=== PATIENT | female | born 1945 | race Caucasian/White ===

== ENCOUNTER 2025-07-03 18:08 | Inpatient (IN) | payer MEDICARE, SELFPAY ==
[2025-07-03] VITALS (47 sets, daily range): BP systolic 102–177; BP diastolic 65–135; PULSE 50–121; RESP 14–35; TEMP 36.8–36.9; O2SAT 30–95
--- NOTE | 2025-07-03 18:00 | RT.EKG_ITS ---
APPROVED REPORT Exam: Resting ECG Reason for Exam: low O2 sats Patient Location: E HR:110 bpm ECG Measurements Heart Rate 110 AXIS NV 173 P 61 QRSd 86 QRS 74 QT 323 T 29 QTc 436 Conclusion Sinus tachycardia...rate> 99 Probable left atrial enlargement...P >50mS, <-0.10mV V1
--- NOTE | 2025-07-03 18:30 | DI.RAD_ITS ---
Exam(s) XR PORTABLE CHEST AP EXAM: XR PORTABLE CHEST AP CLINICAL HISTORY: cough TECHNIQUE: 2D digital imaging was performed of the chest. One image was obtained. An AP view was obtained. COMPARISON: No exams were available for comparison FINDINGS: MEDIASTINUM: Normal. HEART: Normal. PULMONARY VASCULATURE: Normal. LUNGS: Multifocal opacities are present particularly in the right upper lobe laterally. PLEURAL SPACE: No pleural effusion or pneumothorax. BONE:Within normal limits for the patient's age. OTHER FINDINGS:Normal. IMPRESSION: 1. Multifocal opacities, particularly in the right upper lobe suspicious for pneumonia. 2. The preliminary [facility] report was reviewed. DATA REPOSITORY: RADIATION DOSE DELIVERED:
--- NOTE | 2025-07-03 18:32 | W.ED.GENAD ---
Discharge Plan Disposition Patient Disposition: Admit to [facility] Condition: Stable Discharge Details Clinical Impression: Acute hypoxic respiratory failure, Multifocal pneumonia, COPD exacerbation ED Provider: Hema Henson Home Meds and New Rx's Prescriptions: No Action multivitamin Tablet 1 tab PO DAILY primidone 50 mg tablet 50 mg PO BID atorvastatin [Lipitor] 80 mg tablet 80 mg PO DAILY amitriptyline 10 mg tablet 10 mg PO DAILY ropinirole 0.5 mg tablet 0.5 mg PO DAILY clonazepam [Klonopin] 2 mg tablet 2 mg PO QHS Rx Instructions: administer 30 minutes before bedtime montelukast 10 mg tablet 10 mg PO DAILY loratadine [Allergy Relief (loratadine)] 10 mg tablet 10 mg PO DAILY ramipril 10 mg capsule 10 mg PO DAILY tizanidine 4 mg capsule 4 mg PO BID PRN pantoprazole [address] for susp in packet 40 mg PO DAILY levothyroxine 75 mcg capsule 75 mcg PO DAILY HPI General Mode of arrival: ambulatory. Date/Time Provider Initiated Documentation: 07/03/25 18:09. Limitations to Documentation: no limitations. Information obtained by: patient. History of Present Illness 79 year old F presents to the emergency department with the chief complaint of shortness of breath, cough, described as moderate, Patient started experiencing this day(s) (4) and it has been constant. No relieving factors improve symptom(s), No exacerbating factors reported . Patient notes cough, fever/chills and shortness of breath; denies chest pain. Patient did receive the following treatments prior to arrival, none Related Data Home Medications ?Medication ?Instructions ?Recorded ?Confirmed amitriptyline 10 mg tablet 10 mg PO DAILY 07/03/25 07/03/25 atorvastatin 80 mg tablet (Lipitor) 80 mg PO DAILY 07/03/25 07/03/25 clonazepam 2 mg tablet (Klonopin) 2 mg PO QHS 07/03/25 07/03/25 levothyroxine 75 mcg capsule 75 mcg PO DAILY 07/03/25 07/03/25 loratadine 10 mg tablet (Allergy 10 mg PO DAILY 07/03/25 07/03/25 Relief (loratadine)) montelukast 10 mg tablet 10 mg PO DAILY 07/03/25 07/03/25 multivitamin 1 tab PO DAILY 07/03/25 07/03/25 pantoprazole 40 mg granules 40 mg PO DAILY 07/03/25 07/03/25 delayed-release for susp in packet primidone 50 mg tablet 50 mg PO BID 07/03/25 07/03/25 ramipril 10 mg capsule 10 mg PO DAILY 07/03/25 07/03/25 ropinirole 0.5 mg tablet 0.5 mg PO DAILY 07/03/25 07/03/25 tizanidine 4 mg capsule 4 mg PO BID PRN 07/03/25 07/03/25 Allergies Allergy/AdvReac Type Severity Reaction Status Date / Time codeine Allergy Intermediate Diarrhea Verified 07/03/25 17:00 General Stated Complaint: SOB SIRISHA: 2 Review of Systems All systems reviewed & are unremarkable except as noted in HPI and below Constitutional Constitutional: Reports chills, Reports fever(s) and Denies weakness Cardiovascular Cardiovascular: Denies chest pain and Reports dyspnea Respiratory Respiratory: Reports cough and Reports dyspnea Gastrointestinal Gastrointestinal: Denies abdominal pain, Denies nausea and Denies vomiting Neurologic Neurologic: Denies weakness Psychiatric Psychiatric: Denies depression Exam Const General: no acute distress Orientation: alert HENKY Head: normal to inspection Ears: external ears normal General nose exam: external nose normal Mouth: moist mucous membranes Eyes General: appearance normal, both eyes and all related structures Neck Neck: normal visual inspection Resp Auscultation: rhonchi and wheezes Cardio Rate: regular rate Skin General skin exam: no rashes or lesions noted Neuro General: patient alert and patient oriented x3 Extrem General: normal to inspection Psych Mental Status: mental status grossly normal Course Vital Signs Vital signs: Vital Signs Temperature 36.9 C 07/03/25 18:11 Pulse 115 H 07/03/25 18:11 Respiratory Rate 25 H 07/03/25 18:11 Blood Pressure 151/76 H 07/03/25 18:11 Pulse Oximetry 74 L 07/03/25 18:11 Temperature 36.9 C 07/03/25 18:21 Temperature Source Oral 07/03/25 18:21 Pulse 109 H 07/03/25 18:21 Respiratory Rate 24 07/03/25 18:21 Blood Pressure 151/76 H 07/03/25 18:21 Pulse Oximetry 74 L 07/03/25 18:21 Oxygen Delivery Method Room Air 07/03/25 18:21 Oxygen Flow Rate 0 07/03/25 18:11 Comment 2L initiated 07/03/25 18:21 Lab/Test Results Lab/Test Results: 07/03/25 18:21 Blood Blood Culture - Pending 07/03/25 18:21 Blood Blood Culture - Pending Medical Decision Making 79-year-old female with a history of COPD not normally on oxygen who is visiting from [place] comes in for 4 days of cough, shortness of breath and subjective fevers. Denies any chest pain or chest pressure. She has been using her normal inhalers for COPD and despite this has had worsening shortness of breath so initially went to [facility] who noted she was hypoxic and sent her here. She is 74% on room air on my exam she is 90% on 2 L nasal cannula. She is able to speak in full sentences, she has apical wheezing bilaterally and rhonchi at the bases bilaterally. No JVD or leg swelling or calf tenderness. Given her history I suspect COPD exacerbation and possibly a pneumonia. Will check CBC, CMP, procalcitonin, troponins and chest x-ray and treat her symptoms with methylprednisolone and DuoNeb. Patient's potassium 2.9 so oral and IV repletion ordered. Troponin is over 500 she continues to deny any chest pain and I suspect this is secondary from being hypoxic likely for a few days. X-ray shows interstitial edema, I will obtain a CTA. CTA shows no PE, does have bilateral pulmonary opacities and also small right pleural effusion. Given her proBNP is elevated I am willing of her dose of Lasix and ceftriaxone and azithromycin been ordered. She is also asking for a dose of Imitrex which she says she takes for migraines and states she feels 1 is starting so we will order this. Will discuss with hospitalist about admission. Differential Diagnosis Differential Diagnosis: COPD, pneumonia Lab Data Lab results reviewed: Yes I reviewed the patient's lab results. ECG Data Attestation: I personally reviewed and interpreted this ECG (s) as follows: Prior ECG tracings: not available for review Interpretation: sinus tachycardia, rate of 11 no stemi PFSH All Active Problems (Updated 07/03/25 @ 20:19 by Hema Henson MD) COPD exacerbation (Acute) Multifocal pneumonia (Acute) Acute hypoxic respiratory failure (Acute) Social History Smoking/Tobacco Use Status: Former Tobacco Use Smoking risk assessment performed?: Yes Alcohol Intake: former Substance use type: does not use Housing: house Do you feel safe at home: Yes Do you feel safe in your relationship?: Yes
[2025-07-03 18:35] LABS: BE (Venous) -1 mmol/L (-2-3); HCO3 (Venous) 25 mmol/L (23-28); O2 Sat (Venous) 81 %; TCO2 (Venous) 22 mmol/L (24-29); pCO2 (Venous) 45 mmHg (41-51); pO2 (Venous) 46 mmHg
[2025-07-03] MEDS: methylPREDNISolone SUCC 125 MG VIAL IVP (18:35)
[2025-07-03 18:36] LABS: Abs Immature Grans 0.13 10^3/uL (0.0-0.06); HCT 40.1 % (36.0-46.0); HGB 12.8 g/dL (11.2-15.7); Immature Grans % 1.0 %; MCH 28.3 pg (27.0-33.0); MCHC 31.9 % (32.0-36.0); MCV 89 fL (80-95); MPV 10.2 fL (8.0-11.0); Platelet Count 251 10^3/uL (130-400); RBC 4.53 10^6/uL (3.93-5.22); RDW 14.1 % (11.7-14.6); RDW-SD 45.8 fL; WBC 12.78 10^3/uL (4.4-10.8)
[2025-07-03] MEDS: Albuterol/Ipratropium 3 ML UPD VIAL UPD ×2 (18:36→19:14)
--- NOTE | 2025-07-03 19:00 | DI.CT_ITS ---
Exam(s) CT CHEST PE CTA EXAM: CT CHEST PE CTA CLINICAL HISTORY: hypoxia, dyspnea. TECHNIQUE: Imaging Protocol: Axial CT angiography was performed with multi- slice acquisition and multi-planar and/or 3D reconstructions. Lung Computer Aided Detection (CAD) was utilized. CONTRAST MATERIAL: Intravenous: Omnipaque 350 contrast volume:75 mL COMPARISON: CR,XR XR PORTABLE CHEST AP from 07/03/2025 FINDINGS: Tracheobronchial tree: There is mild bronchial wall thickening seen in the lower lobes bilaterally. Mucous plugging is seen in the right lower lobe. No bronchiectasis. Pulmonary parenchyma: Emphysematous changes are present in the lungs. There are areas of consolidation in the right upper lobe left upper lobe and right middle lobe. There is atelectasis in the right lower lobe. Pulmonary Arteries: No evidence of filling defect to suggest pulmonary emboli. Mediastinum and Татьяна: There are mildly enlarged lymph nodes seen in the mediastinum which may be reactive. The esophagus is unremarkable. Visualized thyroid gland: Unremarkable. Pleura: There is a tiny right pleural effusion. No significant left pleural effusion. There is no pneumothorax. Heart: The heart is not dilated. Mild coronary artery calcification is present. No pericardial effusion. Aorta: Thoracic aorta non-dilated. No evidence of dissection. Atherosclerotic calcification is present. Upper abdomen: Unremarkable. Soft tissues: Unremarkable. Bones: Within normal limits for the patient's age. IMPRESSION: 1. No evidence of pulmonary embolism, thoracic aortic dissection or aneurysm. 2. Multifocal pulmonary infiltrates are present suspicious for pneumonia. 3. Nonspecific bronchial wall thickening and mucus plugging in the right lower lobe with resultant right basilar atelectasis. 4. Tiny right pleural effusion. 5. Moderate centrilobular emphysema. 6. The preliminary [facility] report was reviewed. RADIATION DOSE DELIVERED: 67.24mGy.cm Total DLP DATA REPOSITORY: All CT scans at this facility are submitted to the National Radiology Data Registry (NRDR) Dose Index Registry (DIR) with the [employer] (ACR). RADIATION OPTIMIZATION: All CT scans at this facility use at least one of these dose optimization techniques: automated exposure control; mA and/or kV adjustment per patient size (includes targeted exams where dose is matched to clinical indication); or iterative reconstruction.
[2025-07-03 19:03] LABS: ALT 42 U/L (14-59); AST 39 U/L (15-37); Albumin 2.7 g/dL (3.4-5.0); Alkaline Phosphatase 139 U/L (46-116); Anion Gap 10.7 mmol/L (3-11); BUN 20 mg/dL (7-18); Bilirubin, Total 0.4 mg/dL (0.2-1.0); CO2 26.3 mmol/L (21.0-32.0); Calcium 9.2 mg/dL (8.5-10.1); Chloride 101 mmol/L (98-107); Estimated GFR 51.75 (mL/min/1.73m2); Glucose 219 mg/dL (74-106); Magnesium 1.9 mg/dL (1.8-2.4); NT-proBNP 3718 pg/mL (<300); Sodium 138 mmol/L (136-145); Total Protein 8.1 g/dL (6.4-8.2)
[2025-07-03 19:05] LABS: Potassium 2.9 mmol/L (3.5-5.1); Procalcitonin 0.48 ng/mL; Troponin I 554 ng/L (<or=51)
[2025-07-03] MEDS: Potassium Chloride 20 MEQ TABCR 40 MEQ PO (19:14)
[2025-07-03 19:15] LABS: COVID-19 PCR Negative (Negative); RSV PCR Negative (Negative)
--- NOTE | 2025-07-03 19:25 | DI.[facility]_ITS ---
PROCEDURE INFORMATION: Exam: XR Chest Exam date and time: 07/03/2025 7:14 PM Age: 79 years old Clinical indication: Cough TECHNIQUE: Imaging protocol: Radiologic exam of the chest. Views: 1 view. COMPARISON: No relevant prior studies available. FINDINGS: Lungs: There are diffuse interstitial radiopacities throughout both lungs. Patchy consolidative radiopacities are present within the right mid lung. Pleural spaces: No pleural effusion or pneumothorax. Heart/Mediastinum: The heart is normal size. Bones/joints: Unremarkable. IMPRESSION: 1. Diffuse interstitial radiopacities suspicious for pulmonary edema. Differential considerations include viral pneumonitis. 2. Consolidative right pulmonary radiopacities suspicious for aspiration/infection. Short interval follow-up is recommended to exclude underlying pulmonary pathology. Dictated and Authenticated by: Lula Isbell MD. Orderin Sixto Garrido MD
[2025-07-03] MEDS: POTASSIUM CHLORIDE 10 MEQ/100 ML BAG 100 MEQ IV_INF (19:26)
[2025-07-03] MEDS: Omnipaque 350 MG/ML 100 ML BTL IJ (19:46)
[2025-07-03] MEDS: Normal Saline - Diluent 50 ML VIAL IJ (19:46)
[2025-07-03 20:05] LABS: Troponin I 495 ng/L (<or=51)
--- NOTE | 2025-07-03 20:09 | DI.[facility]_ITS ---
PROCEDURE INFORMATION: Exam: CTA Chest With Contrast Exam date and time: 07/03/2025 7:54 PM Age: 79 years old Clinical indication: Dyspnea and other: Hypoxia; Hypoxia, dyspnea TECHNIQUE: Imaging protocol: Computed tomographic angiography of the chest with contrast. Exam focused on the arteries. 3D rendering (Not supervised by radiologist): MIP and/or 3D reconstructed images were created by the technologist. COMPARISON: XR PORTABLE CHEST AP 07/03/2025 7:14 PM FINDINGS: Pulmonary arteries: No acute pulmonary embolus. Aorta: Atheromatous calcifications are present within the visualized thoracic aorta. Lungs: There is moderate centrilobular emphysema with an apical predominance. Consolidative radiopacities are present within the posterior right upper lobe and to a lesser extent the left upper lobe. Dependent atelectasis is present at the lung bases. Pleural spaces: There is a small low-density right pleural effusion. Heart: Heart is normal size. No pericardial effusion. Lymph nodes: There is a 1.1 cm in diameter pretracheal lymph node. Bones/joints: Bones have a normal appearance. No acute fracture or suspicious bone lesion. Soft tissues: Unremarkable. IMPRESSION: 1. No pulmonary embolus. 2. Bilateral upper lobe pulmonary radiopacities, greater on the right than on the left suspicious for multifocal aspiration/pneumonia. Short interval follow-up is recommended to exclude underlying pulmonary pathology. 3. Small right pleural effusion. Dictated and Authenticated by: Lula Isbell MD. Orderin Sixto Garrido MD
--- NOTE | 2025-07-03 20:35 | W.PM.HP.N ---
Date of service: 07/03/25 Time of Service: 20:35 Assessment and Plan Assessment and plan (1) Acute hypoxic respiratory failure: Start date: 07/03/25 Status: Acute Assessment and plan: This is a 79-year-old lady vacationing here with her who has mild dementia and a small cabin. She does have COPD and noticed worsening respiratory symptoms with fever and chills recently and presents to the ED for evaluation. She is hypoxic with no hypoxia at home on Breo for COPD. She was found to have multifocal pneumonia possible vascular congestion with right pleural effusion. Her WBC was mildly elevated and she did not appear septic. She did have a bump in her troponins with no history of cardiovascular disease and these are trending downward and appear to be secondary to the stress of days of hypoxemia. She is asymptomatic with no chest pain. She will be continued on IV Rocephin and a Zithromax with oxygen supplementation and treatment of COPD exacerbation. Cardiac monitoring with echocardiogram morning to evaluate heart function with question of CHF and on IV Lasix now. Troponins will be trended with patient asymptomatic with no ischemic changes on EKG. She is a full code. (2) Multifocal pneumonia: Start date: 07/03/25 Status: Acute Assessment and plan: Continue IV Rocephin and Zithromax with oxygen supplementation. Wean oxygen as tolerated. (3) Pleural effusion associated with pulmonary infection: Start date: 07/03/25 Status: Acute Assessment and plan: Patient may have inflammatory changes with pleural effusion and vascular congestion but question of CHF with elevated BNP and no comparison. She has had no peripheral edema or weight gain. Lasix 40 mg IV twice daily with 20 mg of Lasix given in the ED. Avoid IV fluids. Follow-up echocardiogram especially with elevated troponins. Cardiac monitoring. (4) COPD exacerbation: Start date: 07/03/25 Status: Acute Assessment and plan: IV Solu-Medrol with aggressive nebulizer treatments. Treat pneumonia and possible CHF as well. (5) Hypokalemia: Start date: 07/03/25 Status: Acute Assessment and plan: IV supplement and oral supplement in the ED with follow-up in the morning. She is not on chronic Lasix but now is on Lasix for possible CHF. (6) Acute hyperglycemia: Start date: 07/03/25 Status: Acute Assessment and plan: Patient given history of diabetes but has hyperglycemia. Glucometer measurements before meals and at bedtime with sensitive sliding scale insulin coverage while hospitalized. Check hemoglobin A1c. (7) Elevated troponin level not due to acute coronary syndrome: Start date: 07/03/25 Status: Acute Assessment and plan: Patient does have elevated troponins with no history of CAD. Trend troponins since trending downward and echocardiogram in the morning. Cardiac monitoring. There is no evidence of ischemia and this most likely is secondary to acute respiratory failure with hypoxemia. She does have risk factors for CAD with hypertension and hyperlipidemia and her obesity with diabetes. If echocardiogram has wall motion abnormalities, with elevated troponins [facility] cardi[place] should be consulted as to more aggressive treatment for ischemic heart disease acutely with her stress of hypoxic respiratory failure. She is a full code. (8) Hypothyroidism (acquired): Status: Chronic Assessment and plan: Continue outpatient supplementation. Check TSH. (9) HTN (hypertension): Status: Chronic Assessment and plan: Continue outpatient medical therapy. (10) Hyperlipidemia: Status: Chronic Assessment and plan: Continue high-dose statin therapy. (11) Migraine headache: Status: Chronic Assessment and plan: Continue outpatient medical therapy. Patient also has restless leg syndrome and essential tremor for which she is on medical therapy. History of Present Illness History of Present Illness Chief Complaint: Shortness of breath with cough and wheezing for 4 days. Narrative: This is a 79-year-old female patient from [place] vacationing here with her who has mild dementia and is a service dog. They are camping in a small cabin owned by their friends who live on the same property in [place], [place]. She has been having problems with difficulty breathing, cough and exacerbation her of her chronic COPD for the last 4 days. She also has been having chills with low-grade fever. She has had no reported chest pain. She denies any hemoptysis or production of sputum. She does have Breo which she uses daily but did not mention a rescue inhaler. She was seen in the ED and found to have multifocal pneumonia which appears possibly viral with some suggestion of fluid overload with interstitial markings increased and a right pleural effusion but no history of CAD or CHF. She does have a history of hypertension on MAKENNA inhibitor. She is chronically on clonazepam nightly and PDMP did not show any prescriptions but does not cover her state of [place]. She confirmed that she takes this nightly. She was given IV Lasix in the ED because of her pleural effusion and possible fluid overload and initiated on IV ceftriaxone and a Zithromax for multifocal pneumonia with new hypoxic respiratory failure. She also was treated for COPD exacerbation with Solu-Medrol and nebulizers. She had no significant fever in the ED. Cultures were obtained. She will be admitted for continued IV antibiotic therapy and supportive care for possible CHF and monitor drain of oxygen needs the patient chronically not on oxygen at home. She does appear to be discharged home without oxygen. She is a full code. Review of Systems Narrative: 13 point review of systems otherwise unrevealing or stable. [facility] All Active Problems (Updated 07/03/25 @ 20:41 by Blas Hurtado) Pleural effusion associated with pulmonary infection (Acute) Elevated troponin level not due to acute coronary syndrome (Acute) Hypokalemia (Acute) Acute hyperglycemia (Acute) Migraine headache (Chronic) Hyperlipidemia (Chronic) HTN (hypertension) (Chronic) Hypothyroidism (acquired) (Chronic) COPD exacerbation (Acute) Multifocal pneumonia (Acute) Acute hypoxic respiratory failure (Acute) Social History Smoking/Tobacco Use Status: Former Tobacco Use Smoking risk assessment performed?: Yes Alcohol Intake: former Substance use type: does not use Housing: house Do you feel safe at home: Yes Do you feel safe in your relationship?: Yes Meds Allergies and Home Medications Allergies Allergy/AdvReac Type Severity Reaction Status Date / Time codeine Allergy Intermediate Diarrhea Verified 07/03/25 17:00 Home Medications ?Medication ?Instructions ?Recorded ?Confirmed ?Type amitriptyline 10 mg tablet 10 mg PO DAILY 07/03/25 07/03/25 History atorvastatin 80 mg tablet (Lipitor) 80 mg PO DAILY 07/03/25 07/03/25 History clonazepam 2 mg tablet (Klonopin) 2 mg PO QHS 07/03/25 07/03/25 History levothyroxine 75 mcg capsule 75 mcg PO DAILY 07/03/25 07/03/25 History loratadine 10 mg tablet (Allergy 10 mg PO DAILY 07/03/25 07/03/25 History Relief (loratadine)) montelukast 10 mg tablet 10 mg PO DAILY 07/03/25 07/03/25 History multivitamin 1 tab PO DAILY 07/03/25 07/03/25 History pantoprazole 40 mg granules 40 mg PO DAILY 07/03/25 07/03/25 History delayed-release for susp in packet primidone 50 mg tablet 50 mg PO BID 07/03/25 07/03/25 History ramipril 10 mg capsule 10 mg PO DAILY 07/03/25 07/03/25 History ropinirole 0.5 mg tablet 0.5 mg PO DAILY 07/03/25 07/03/25 History sumatriptan succinate PO PRN migraine headache 07/03/25 History tizanidine 4 mg capsule 4 mg PO BID PRN 07/03/25 07/03/25 History Exam Narrative Exam Narrative: General: Patient appears appropriate for age, moderately obese, alert and oriented x 3 and in no acute distress. Patient does have a hoarse voice and states that she has chronic vocal cords spasm. HEENT: Normocephalic, eyes with pupils equal and react to light symmetrically, extraocular movement intact and sclera anicteric. Oropharynx with moist Koza and fair dentition. Neck: Supple without JVD. Back: Kyphotic without CVA tenderness. Lungs: Fair to poor aeration with bronchovesicular breath sounds diffusely, slightly increased expiratory phase with expiratory wheeze. Diffuse coarse crackles withdrawn nonfocal with no focalizing rales. No rhonchi. Breast: Exam deferred. Heart: Tachycardic rate with regular rhythm. No appreciable murmur or gallop. Abdomen: Obese contour, soft and nontender to palpation without palpable hepatosplenomegaly. Bowel sounds positive all quadrants. Genitalia/rectal: Exam deferred. Extremities: No clubbing, cyanosis or pitting edema. Fair capillary refill. Skin: Normal color, warm and dry. Neuro: Cranial nerves II through XII gross intact, no focalized motor deficits noted tremor seen on exam but she does have a history of essential tremor on primidone. Psych: Normal affect and mood. No abnormal thought processes. Remote and recent memory intact. Results Labs 07/03/25 18:22 07/03/25 19:20 Labs: Laboratory Results - last 24 hr 07/03/25 07/03/25 18:22 19:20 WBC 12.78 H RBC 4.53 Hgb 12.8 Hct 40.1 MCV 89 MCH 28.3 MCHC 31.9 L RDW 14.1 Plt Count 251 MPV 10.2 Immature Gran % 1.0 Neutrophils % 77.0 Lymphocytes % 9.8 Monocytes % 11.4 Eosinophils % 0.3 Basophils % 0.5 Nucleated RBC % 0.4 H Absolute Neutrophils 9.84 H Absolute Lymphocytes 1.25 Absolute Monocytes 1.46 H Absolute Eosinophils 0.04 Absolute Basophils 0.06 VBG pH 7.35 VBG pCO2 45 VBG pO2 46 VBG HCO3 25 VBG Total CO2 22 L VBG O2 Saturation 81 VBG Base Excess -1 Sodium 138 Potassium 2.9 L* Chloride 101 Carbon Dioxide 26.3 Anion Gap 10.7 BUN 20 H Creatinine 1.1 H Est GFR (CKD-EPI 2020) 51.75 Glucose 219 H Calcium 9.2 Magnesium 1.9 Total Bilirubin 0.4 AST 39 H ALT 42 Alkaline Phosphatase 139 H Troponin I 554 H* 495 H* NT-Pro-B Natriuret Pep 3718 H Total Protein 8.1 Albumin 2.7 L Procalcitonin 0.48 COVID-19 Source Nasopharynx SARS-CoV-2 (PCR) Negative Influenza Type A (PCR) Negative Influenza Type B (PCR) Negative RSV (PCR) Negative Last Vital Signs Temp 36.9 C 07/03/25 18:21 Pulse 114 H 07/03/25 20:10 Resp 19 07/03/25 20:10 BP 158/82 H 07/03/25 20:03 Pulse Ox 90 L 07/03/25 20:10 Time Spent Time spent with Patient: >75 minutes Time was spent: preparing to see the patient(eg.review tests), obtaining and/or reviewing separately otained hiistory, ordering medications,tests, procedures, indepentently interpreting results, counseling the patient and care coordination
[2025-07-03 20:40] LABS: Potassium 3.3 mmol/L (3.5-5.1)
[2025-07-03] MEDS: cefTRIAXone 2 GM/50 ML BAG IVPB (20:50)
[2025-07-03] MEDS: Furosemide 20 MG/2 ML VIAL IVP (20:51)
[2025-07-03] MEDS: Aspirin 325 MG TAB PO (20:51)
[2025-07-03] MEDS: Normal Saline Flush 10 ML SYR IVP (21:05)
[2025-07-03] MEDS: SUMAtriptan 50 MG TAB PO (21:25)
[2025-07-03] MEDS: AZITHROMYCIN 500 MG in Normal Saline 250 ML 250 MG IVPB (21:25)
[2025-07-03 21:27] LABS: TSH 1.85 uIU/mL (0.36-3.74)
[2025-07-03 21:58] LABS: Hemoglobin A1C 6.5 % (<5.7)
[2025-07-03 22:26] LABS: Troponin I 434 ng/L (<or=51)
--- NOTE | 2025-07-03 22:41 | W.PC.ACHO ---
Registration Status: REG ER Primary Language: Preferred Language: ED Information & Data Chief Complaint SOB 07/03/25 18:35 Triage Note patient sent from with 07/03/25 18:11 having difficulty breathing and spo2 in low 80s. Patient state she has been having productive cough for the past 4 days Most Recent Vital Signs Temperature 36.9 C 07/03/25 21:00 Temperature Source Oral 07/03/25 21:00 Pulse 109 H 07/03/25 22:09 Pulse 109 H 07/03/25 22:09 Respiratory Rate 25 H 07/03/25 22:09 Respiratory Effort Short of Breath, Labored 07/03/25 20:10 Respiratory Depth Deep 07/03/25 20:10 Respiratory Pattern Tachypnea 07/03/25 20:10 Blood Pressure 168/81 H 07/03/25 22:09 Blood Pressure Mean 111 07/03/25 22:09 Pulse Oximetry 88 L 07/03/25 22:09 Oxygen Delivery Method Nasal Cannula 07/03/25 21:47 Oxygen Flow Rate 3 07/03/25 21:47 Comment 2L initiated 07/03/25 18:21 Allergies codeine Allergy (Intermediate, Verified 07/03/25 17:00) Diarrhea Precautions Isolation PUI 07/03/25 18:20 Active Medications Generic Name Dose Route Start Last Admin Trade Name Mukund PRN Reason Stop Dose Admin Iohexol 100 ml 07/03/25 19:45 07/03/25 19:46 Omnipaque 350 Mg/Ml 100 Ml Btl IJ 08/02/25 23:59 75 ml DIRECTED CHANTEL Administration Sodium Chloride 0 ml 07/03/25 20:00 07/03/25 21:05 Normal Saline Flush 10 Ml Syr IVP 10 ml BID CHANTEL Administration Sodium Chloride 50 ml 07/03/25 19:45 07/03/25 19:46 Normal Saline - Diluent 50 Ml Vial IJ 50 ml DIRECTED CHANTEL Administration IV IV Catheter Type [Right Wrist] Saline Lock IV Catheter Type [Right Saline Lock Antecubital] IV Catheter Gauge [Right Wrist 20 ] IV Catheter Gauge [Right 18 Antecubital] Diagnostics 07/03/25 07/03/25 07/03/25 Range/Units 21:50 20:40 19:20 WBC (4.4-10.8) 10^3/uL RBC (3.93-5.22) 10^6/uL Hgb (11.2-15.7) g/dL Hct (36.0-46.0) % MCV (80-95) fL MCH (27.0-33.0) pg MCHC (32.0-36.0) % RDW (11.7-14.6) % Plt Count (130-400) 10^3/uL MPV (8.0-11.0) fL Immature Gran % % Neutrophils % % Lymphocytes % % Monocytes % % Eosinophils % % Basophils % % Nucleated RBC % (0.0-0.3) % Absolute Neutrophils (1.2-6.7) 10^3/uL Absolute Lymphocytes (1.2-3.4) 10^3/uL Absolute Monocytes (0.1-0.8) 10^3/uL Absolute Eosinophils (0.0-0.7) 10^3/uL Absolute Basophils (0.0-0.2) 10^3/uL VBG pH (7.31-7.41) VBG pCO2 (41-51) mmHg VBG pO2 mmHg VBG HCO3 (23-28) mmol/L VBG Total CO2 (24-29) mmol/L VBG O2 Saturation % VBG Base Excess (-2-3) mmol/L Sodium (136-145) mmol/L Potassium 3.3 L (3.5-5.1) mmol/L Chloride (98-107) mmol/L Carbon Dioxide (21.0-32.0) mmol/L Anion Gap (3-11) mmol/L BUN (7-18) mg/dL Creatinine (0.55-1.02) mg/dL Est GFR (CKD-EPI 2020) (mL/min/1.73m2) Glucose (74-106) mg/dL Hemoglobin A1c 6.5 H (<5.7) % Calcium (8.5-10.1) mg/dL Magnesium (1.8-2.4) mg/dL Total Bilirubin (0.2-1.0) mg/dL AST (15-37) U/L ALT (14-59) U/L Alkaline Phosphatase (46-116) U/L Troponin I Pending 495 H* (<or=51) ng/L NT-Pro-B Natriuret Pep (<300) pg/mL Total Protein (6.4-8.2) g/dL Albumin (3.4-5.0) g/dL Procalcitonin ng/mL TSH 1.85 (0.36-3.74) uIU/mL COVID-19 Source SARS-CoV-2 (PCR) (Negative) Influenza Type A (PCR) (Negative) Influenza Type B (PCR) (Negative) RSV (PCR) (Negative) 07/03/25 Range/Units 18:22 WBC 12.78 H (4.4-10.8) 10^3/uL RBC 4.53 (3.93-5.22) 10^6/uL Hgb 12.8 (11.2-15.7) g/dL Hct 40.1 (36.0-46.0) % MCV 89 (80-95) fL MCH 28.3 (27.0-33.0) pg MCHC 31.9 L (32.0-36.0) % RDW 14.1 (11.7-14.6) % Plt Count 251 (130-400) 10^3/uL MPV 10.2 (8.0-11.0) fL Immature Gran % 1.0 % Neutrophils % 77.0 % Lymphocytes % 9.8 % Monocytes % 11.4 % Eosinophils % 0.3 % Basophils % 0.5 % Nucleated RBC % 0.4 H (0.0-0.3) % Absolute Neutrophils 9.84 H (1.2-6.7) 10^3/uL Absolute Lymphocytes 1.25 (1.2-3.4) 10^3/uL Absolute Monocytes 1.46 H (0.1-0.8) 10^3/uL Absolute Eosinophils 0.04 (0.0-0.7) 10^3/uL Absolute Basophils 0.06 (0.0-0.2) 10^3/uL VBG pH 7.35 (7.31-7.41) VBG pCO2 45 (41-51) mmHg VBG pO2 46 mmHg VBG HCO3 25 (23-28) mmol/L VBG Total CO2 22 L (24-29) mmol/L VBG O2 Saturation 81 % VBG Base Excess -1 (-2-3) mmol/L Sodium 138 (136-145) mmol/L Potassium 2.9 L* (3.5-5.1) mmol/L Chloride 101 (98-107) mmol/L Carbon Dioxide 26.3 (21.0-32.0) mmol/L Anion Gap 10.7 (3-11) mmol/L BUN 20 H (7-18) mg/dL Creatinine 1.1 H (0.55-1.02) mg/dL Est GFR (CKD-EPI 2020) 51.75 (mL/min/1.73m2) Glucose 219 H (74-106) mg/dL Hemoglobin A1c (<5.7) % Calcium 9.2 (8.5-10.1) mg/dL Magnesium 1.9 (1.8-2.4) mg/dL Total Bilirubin 0.4 (0.2-1.0) mg/dL AST 39 H (15-37) U/L ALT 42 (14-59) U/L Alkaline Phosphatase 139 H (46-116) U/L Troponin I 554 H* (<or=51) ng/L NT-Pro-B Natriuret Pep 3718 H (<300) pg/mL Total Protein 8.1 (6.4-8.2) g/dL Albumin 2.7 L (3.4-5.0) g/dL Procalcitonin 0.48 ng/mL TSH (0.36-3.74) uIU/mL COVID-19 Source Nasopharynx SARS-CoV-2 (PCR) Negative (Negative) Influenza Type A (PCR) Negative (Negative) Influenza Type B (PCR) Negative (Negative) RSV (PCR) Negative (Negative) 07/03/25 18:43 Blood Culture - Pending Blood 07/03/25 18:11 Blood Culture - Pending Blood Intake and Output - 24 Hour Total 07/03/25 18:08 thru 07/03/25 22:06 Intake Total 350 Output Total 350 Balance 0 Weight 74.389 kg Intake: IV 150 Oral 200 Output: Urine 350 Other: # Voids 2 Falls Risk Assessment History of Falls No History 07/03/25 18:51 Contributing Factors No Factors 07/03/25 18:51 Ambulatory Aids Independent 07/03/25 18:51 Tubes/Lines None 07/03/25 18:51 Gait Evaluation No gait disturbance 07/03/25 18:51 Cognition No cognitive impairment 07/03/25 18:51 Fall Total Score 0 08/26/25 18:51 Level of Risk Standard/Low Risk 07/03/25 18:51 Problems Pleural effusion associated with pulmonary infection (Acute) Elevated troponin level not due to acute coronary syndrome (Acute) Hypokalemia (Acute) Acute hyperglycemia (Acute) Migraine headache (Chronic) Hyperlipidemia (Chronic) HTN (hypertension) (Chronic) Hypothyroidism (acquired) (Chronic) COPD exacerbation (Acute) Multifocal pneumonia (Acute) Acute hypoxic respiratory failure (Acute) v v v v v v v v v Sending and/or Receiving Nurses: Please use comment section below to note any information pertinent to the patient hand-off not included above. Information / Comments:Received report from ed nurse sofya.Received pt per w/c with the ed nurse and carrying their dog around 2027.With o2 hooked and telemetry on.Situated pt to bed and admission documentaion started. Report received from:presley
[2025-07-03] MEDS: rOPINIRole 0.5 MG TAB PO (23:33)
[2025-07-03] MEDS: clonazePAM 1 MG TAB 2 MG PO (23:33)
[2025-07-04] VITALS (16 sets, daily range): BP systolic 112–143; BP diastolic 51–76; PULSE 98–117; RESP 14–24; TEMP 35.9–36.4; O2SAT 86–97
[2025-07-04] MEDS: Insulin Aspart 300 UNITS/3 ML PEN SC ×5 (00:05→21:38)
[2025-07-04] MEDS: methylPREDNISolone SUCC 125 MG VIAL 60 MG IVP ×2 (02:03→09:57)
[2025-07-04] MEDS: Albuterol/Ipratropium 3 ML UPD VIAL UPD ×4 (02:27→19:55)
[2025-07-04] MEDS: Levothyroxine 75 MCG TAB PO (05:42)
[2025-07-04 07:21] LABS: HCT 38.9 % (36.0-46.0); HGB 12.6 g/dL (11.2-15.7); MCH 29.0 pg (27.0-33.0); MCHC 32.4 % (32.0-36.0); MCV 89 fL (80-95); MPV 10.4 fL (8.0-11.0); Platelet Count 239 10^3/uL (130-400); RBC 4.35 10^6/uL (3.93-5.22); RDW 14.1 % (11.7-14.6); RDW-SD 45.8 fL; WBC 11.41 10^3/uL (4.4-10.8)
[2025-07-04 07:53] LABS: ALT 33 U/L (14-59); AST 30 U/L (15-37); Albumin 2.4 g/dL (3.4-5.0); Alkaline Phosphatase 131 U/L (46-116); Anion Gap 8.3 mmol/L (3-11); BUN 15 mg/dL (7-18); Bilirubin, Total 0.3 mg/dL (0.2-1.0); CO2 28.7 mmol/L (21.0-32.0); Calcium 9.2 mg/dL (8.5-10.1); Chloride 105 mmol/L (98-107); Estimated GFR 75.84 (mL/min/1.73m2); Glucose 186 mg/dL (74-106); Magnesium 1.9 mg/dL (1.8-2.4); Potassium 3.7 mmol/L (3.5-5.1); Sodium 142 mmol/L (136-145); Total Protein 7.7 g/dL (6.4-8.2)
[2025-07-04 08:00] LABS: Troponin I 291 ng/L (<or=51)
--- NOTE | 2025-07-04 09:07 | PDOC.CMIN ---
Date of service: 07/04/25 Time of Service: 09:07 Care Management Initial Assmt Initial Assessment Reason for Hospitalization: Respiratory failure and pneumonia Functional Status/Living Situation Patient Presentation: Jeannette was sitting up in bed visiting with her while holding her dog when CM met with her. She was admitted last night with pneumonia and hypoxic respiratory failure and is requiring supplemental oxygen (2.5 to 3 L/min) to maintain her oxygen saturation >90%. Jeannette and her Kate were vacationing with friends in [place] when she became ill. They are from [place] and will return when Jeannette is able to travel. There was a bit of an issue with the couple's dog. He is a one year old service dog for her who has mild dementia. Since her is not our patient, he was unable to remain with his with the dog. Last evening the dog was barking and bit the shoes of one of the nurses. The couple made plans today to have a friend fiber picker the dog and bring him back home to [place]. Kate will remain with Jeannette on a cot in her room. Jeannette and Kate were living in [place] until 3 years ago. Each of them has a daughter still in [place], and Jeannette also has a daughter in [place]. 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 Jeannette is independnet at baseline and does not receive any community servicxews. Town of Residence: [place], [place] Resides with: Spouse () Significant Other/Family: Out of area Employment Status: Retired Instrumental Activities of Daily Living (ADLs): Independent Medications Medication Management: No Issues/Barriers identified Physical Functioning/Mobility Assistive Device: none Advance Directives Advance Directives: Do you have an Advance Directive: N 07/03/25, 22:26 AD On File at [facility]: N 07/03/25, 18:37 Date Asked 07/03/25 07/03/25, 22:26 AD Date Reviewed COLST On File at [facility] No 07/03/25, 18:37 COLST Date Scanned Code Status Resuscitation Status Full Code Portal Pt does not currently have a portal and education provided: No Portal Education: Other (from out of state) Insurance Coverage/Financial Issues Insurance: Medicare United [employer] Supplement Care Team Visit Care Team Role Provider Type Myriam Bee NP MD [facility] STAFF PHYSICIAN Local No Primary Care Provider NON-[facility] STAFF PHYSICIAN Hema Henson MD Emergency Provider [facility] STAFF PHYSICIAN Blas Hurtado Admit Provider NON-[facility] STAFF PHYSICIAN Attending Provider Discharge Potential Discharge Needs: PCP F/U Appt Anticipated Barriers to Discharge: None Identified Patient/Family Education Needs: Review discharge instructions, discuss Ask Me Three Transportation: Private vehicle Plan: Anticipate Jeannette will be discharged home when medically stable. She will follow up with her PCP and plan of care and transport via private vehicle. CM will follow and continue to assess for discharge needs. Social Determinants of Health Screening Will the Patient Participate in the Screening?: Declined to provide PFSH All Active Problems (Updated 07/03/25 @ 20:41 by Blas Hurtado) Pleural effusion associated with pulmonary infection (Acute) Elevated troponin level not due to acute coronary syndrome (Acute) Hypokalemia (Acute) Acute hyperglycemia (Acute) Migraine headache (Chronic) Hyperlipidemia (Chronic) HTN (hypertension) (Chronic) Hypothyroidism (acquired) (Chronic) COPD exacerbation (Acute) Multifocal pneumonia (Acute) Acute hypoxic respiratory failure (Acute) Social History Smoking/Tobacco Use Status: Former Tobacco Use Smoking risk assessment performed?: Yes Alcohol Intake: former Substance use type: does not use Housing: house Do you feel safe at home: Yes Do you feel safe in your relationship?: Yes
[2025-07-04] MEDS: Amitriptyline 10 MG TAB PO (09:55)
[2025-07-04] MEDS: Ramipril 5 MG CAP 10 MG PO (09:55)
[2025-07-04] MEDS: Montelukast 10 MG TAB PO (09:55)
[2025-07-04] MEDS: Primidone 50 MG TAB PO ×2 (09:55→21:01)
[2025-07-04] MEDS: Multivitamin TAB 1 TAB PO (09:55)
[2025-07-04] MEDS: Pantoprazole 40 MG TABCR PO (09:57)
[2025-07-04] MEDS: Loratidine 10 MG TAB PO (09:57)
[2025-07-04] MEDS: Furosemide 40 MG/4 ML VIAL IVP ×2 (09:57→15:19)
[2025-07-04] MEDS: Normal Saline Flush 10 ML SYR IVP ×3 (09:58→21:38)
[2025-07-04] MEDS: Enoxaparin 40 MG/0.4 ML SYR SC (09:58)
--- NOTE | 2025-07-04 11:22 | PHA.REVIEW2 ---
Pharmacy Admission Review Admission Clinical Review Admission Pharmacy Review: Pleural effusion associated with pulmonary infection (Acute) Elevated troponin level not due to acute coronary syndrome (Acute) Hypokalemia (Acute) Acute hyperglycemia (Acute) COPD exacerbation (Acute) Multifocal pneumonia (Acute) Acute hypoxic respiratory failure (Acute) codeine Allergy (Intermediate, Verified 07/03/25 17:00) Diarrhea Resuscitation Status Full Code Height 5 ft 4 in Weight 74.31 kg Comments Comments/Follow Ups: Follow up on home med questions if no answer from nurse Pharmacy Admission Review Renal Dosing Renal Dosing: BUN 15 mg/dL (7-18) 07/04/25 06:40 Creatinine 0.8 mg/dL (0.55-1.02) 07/04/25 06:40 Medications needing adjustments: Reviewed (CrCl 46.52 mL/min, SCr decreased from 1.1) List of meds needing interventions: Current medications are okay Anticoagulation Anticoagulation: Hgb 12.6 g/dL (11.2-15.7) 07/04/25 06:40 Hct 38.9 % (36.0-46.0) 07/04/25 06:40 Plt Count 239 10^3/uL (130-400) 07/04/25 06:40 Creatinine 0.8 mg/dL (0.55-1.02) 07/04/25 06:40 DVT Prophylaxis: Reviewed Medications: Enoxaparin (40mg daily) Relevant Labs Relevant Labs: Sodium 142 mmol/L (136-145) 07/04/25 06:40 Potassium 3.7 mmol/L (3.5-5.1) 07/04/25 06:40 Chloride 105 mmol/L (98-107) 07/04/25 06:40 Magnesium 1.9 mg/dL (1.8-2.4) 07/04/25 06:40 Electrolytes, C-Reactive P, ESR: Reviewed DM Control DM Control: Glucose 186 mg/dL (74-106) H 07/04/25 06:40 Hemoglobin A1c 6.5 % (<5.7) H 07/03/25 20:40 Finger Stick Blood Glucose 186 1013 DM Control: Reviewed Insulin Dosing, Diabetic Medication: Has order for SS insulin Cardiac Review Cardiac Review: Troponin I 291 ng/L (<or=51) H* 07/04/25 06:40 NT-Pro-B Natriuret Pep 3718 pg/mL (<300) H 07/03/25 18:22 BP, HR, EF%: Reviewed (BP 143/73 - has been WNL most of morning, HR 105 - ranged from 101-106 all morning, Ox 90 and oxygen flow rate = 2, Troponin decreased from 434) List meds needing interventions: Has orders for furosemide 40mg IVP BID and ramipril 10mg daily QTc Review QTc: Reviewed (436 from 07/03) IV to PO Switch IV Medications: Reviewed (methylprednisolone, furosemide, ceftriaxone and azithromycin) Home Meds Home Med List reviewed: Intervened Relevent Home Meds Not ordered & why?: sumatriptan (PRN) and tizanidine (PRN) Used [employer] traffic operations engineer to verify home med list Asked nurse to confirm if patient uses Breo ellipta (per respiratory patient does use, added to home med list, provider aware), zolpidem and Gemtesa at home - waiting to hear back Asked nurse to confirm primidone dose (50mg BID vs 100mg BID) - waiting to hear back Asked nurse to verify amitriptyline dose (daily vs BID) - waiting to hear back Current Meds Current Medication Order Review: Reviewed Pharmacy Antibiotic Review Relevant Labs: Relevant Labs 07/03/25 18:22 Procalcitonin 0.48 WBC 11.41 10^3/uL (4.4-10.8) H 07/04/25 06:40 Procalcitonin 0.48 ng/mL 07/03/25 18:22 Temperature 36.3 C Temperature 35.9 C Temperature 36.1 C Temperature 36.1 C Pharmacy Antibiotic Activity: C/S review and Reviewed, no change Comments: Patient i son ceftriaxone and azithromycin, day 1, for pneumonia. WBC decreased from 12.78 and blood cultures pending. Comments Comments/Follow Ups: Follow up on home med questions if no answer from nurse
--- NOTE | 2025-07-04 15:33 | PGE_ITS ---
Date of Service Date of service: 07/04/25 Time of Service: 15:33 Assessment and Plan Assessment and plan (1) Acute hypoxic respiratory failure: Start date: 07/03/25 Status: Acute Assessment and plan: Continued on IV Rocephin and a Zithromax with oxygen supplementation and treatment of COPD exacerbation. Continue tele and furosemide (2) Multifocal pneumonia: Start date: 07/03/25 Status: Acute Assessment and plan: Continue IV Rocephin and Zithromax with oxygen supplementation. Wean oxygen as tolerated. (3) Pleural effusion associated with pulmonary infection: Start date: 07/03/25 Status: Acute Assessment and plan: She has had no peripheral edema or weight gain. Continue Lasix 40 mg IV twice daily. Avoid IV fluids. (4) COPD exacerbation: Start date: 07/03/25 Status: Acute Assessment and plan: Prednisone daily; continue nebulizer treatments. (5) Hypokalemia: Start date: 07/03/25 Status: Resolved Assessment and plan: 3.7 Trend; replete prn (6) Acute hyperglycemia: Start date: 07/03/25 Status: Acute Assessment and plan: Patient given history of diabetes but has hyperglycemia. Glucometer measurements before meals and at bedtime with sensitive sliding scale insulin coverage while hospitalized. A1c 6.5 (7) Elevated troponin level not due to acute coronary syndrome: Start date: 07/03/25 Status: Acute Assessment and plan: Patient had elevated troponins with no history of CAD. Down trended [phone] Telemetry Echo EF 55% No wall motion abnormalities. (8) Hypothyroidism (acquired): Status: Chronic Assessment and plan: Continue outpatient supplementation. TSH 1.85 (9) HTN (hypertension): Status: Chronic Assessment and plan: Continue outpatient medical therapy. (10) Hyperlipidemia: Status: Chronic Assessment and plan: Continue high-dose statin therapy. (11) Migraine headache: Status: Chronic Assessment and plan: Continue outpatient medical therapy. Patient also has restless leg syndrome and essential tremor for which she is on medical therapy. Subjective Subjective Patient reports: no new complaints, feels better, pain is less, tolerating liquids well, tolerating a regular diet, voiding w/o difficulty, bowel movement and afebrile; denies still having pain, nausea or shortness of breath Interval history since last seen: Pleasant, sitting on side of bed. Engaged, conversant. Exam Const General: no acute distress Orientation: alert [facility] Head: normal to inspection Ears: external ears normal General nose exam: external nose normal Mouth: moist mucous membranes Eyes General: appearance normal, both eyes and all related structures Neck Neck: normal visual inspection Resp Effort & Inspection: normal respiratory effort Auscultation: clear to auscultation bilaterally Cardio Rate: regular rate Skin General skin exam: no rashes or lesions noted Neuro General: patient alert and patient oriented x3 Extrem General: normal to inspection Right upper extremity: hand (Red dIP 3rd finger right hand; red, swollen, painful. oozing serosanqunus) Psych Mental Status: mental status grossly normal Objective Last Vital Signs Temp 36.3 C L 07/04/25 11:23 Pulse 110 H 07/04/25 15:04 Resp 20 07/04/25 11:23 BP 143/73 H 07/04/25 11:23 Pulse Ox 91 L 07/04/25 15:03 Laboratory Results - last 24 hr 07/03/25 07/03/25 07/03/25 18:22 19:20 20:40 WBC 12.78 H RBC 4.53 Hgb 12.8 Hct 40.1 MCV 89 MCH 28.3 MCHC 31.9 L RDW 14.1 Plt Count 251 MPV 10.2 Immature Gran % 1.0 Neutrophils % 77.0 Lymphocytes % 9.8 Monocytes % 11.4 Eosinophils % 0.3 Basophils % 0.5 Nucleated RBC % 0.4 H Absolute Neutrophils 9.84 H Absolute Lymphocytes 1.25 Absolute Monocytes 1.46 H Absolute Eosinophils 0.04 Absolute Basophils 0.06 VBG pH 7.35 VBG pCO2 45 VBG pO2 46 VBG HCO3 25 VBG Total CO2 22 L VBG O2 Saturation 81 VBG Base Excess -1 Sodium 138 Potassium 2.9 L* 3.3 L Chloride 101 Carbon Dioxide 26.3 Anion Gap 10.7 BUN 20 H Creatinine 1.1 H Est GFR (CKD-EPI 2020) 51.75 Glucose 219 H Hemoglobin A1c 6.5 H Calcium 9.2 Magnesium 1.9 Total Bilirubin 0.4 AST 39 H ALT 42 Alkaline Phosphatase 139 H Troponin I 554 H* 495 H* NT-Pro-B Natriuret Pep 3718 H Total Protein 8.1 Albumin 2.7 L Procalcitonin 0.48 TSH 1.85 COVID-19 Source Nasopharynx SARS-CoV-2 (PCR) Negative Influenza Type A (PCR) Negative Influenza Type B (PCR) Negative RSV (PCR) Negative 07/03/25 07/04/25 21:50 06:40 WBC 11.41 H RBC 4.35 Hgb 12.6 Hct 38.9 MCV 89 MCH 29.0 MCHC 32.4 RDW 14.1 Plt Count 239 MPV 10.4 Immature Gran % Neutrophils % Lymphocytes % Monocytes % Eosinophils % Basophils % Nucleated RBC % Absolute Neutrophils Absolute Lymphocytes Absolute Monocytes Absolute Eosinophils Absolute Basophils VBG pH VBG pCO2 VBG pO2 VBG HCO3 VBG Total CO2 VBG O2 Saturation VBG Base Excess Sodium 142 Potassium 3.7 Chloride 105 Carbon Dioxide 28.7 Anion Gap 8.3 BUN 15 Creatinine 0.8 Est GFR (CKD-EPI 2020) 75.84 Glucose 186 H Hemoglobin A1c Calcium 9.2 Magnesium 1.9 Total Bilirubin 0.3 AST 30 ALT 33 Alkaline Phosphatase 131 H Troponin I 434 H* 291 H* NT-Pro-B Natriuret Pep Total Protein 7.7 Albumin 2.4 L Procalcitonin TSH COVID-19 Source SARS-CoV-2 (PCR) Influenza Type A (PCR) Influenza Type B (PCR) RSV (PCR) PAWSS Have you Been Recently Intoxicated or Drunk Within the Last 30 days?: No Have you Ever Experienced Previous Episodes of Alcohol Withdrawal?: No Have you ever Experienced Withdrawal Seizures?: No Have you ever Experienced Delirium Tremens(DT)s?: No Have you ever undergone Alcohol Rehabilitation Treatment (i.e, inpt ot outpatient treatment programs)?: No Have you ever Experienced Blackouts?: No Have you ever Combined Alcohol with other Downers within the last 90 days?: No Have you ever Combined Alcohol with any other Substance of Abuse during the last 90 days?: No Positive Blood Alcohol level on Presentation? [PCS.BAL]: No Evidence of Increased Autonomic Activity (i.e. HR>120, tremor, sweating, agitation, nausea)?: No Result: 0 Time Spent with Patient Time Spent with Patient: 25-34 minutes Time was spent: preparing to see the patient(eg.review tests), ordering medications,tests, procedures, referring, communicating with other health acute care certified nursing assistant, indepentently interpreting results, counseling the patient and care coordination
[2025-07-04] MEDS: SUMAtriptan 25 MG TAB PO (16:52)
[2025-07-04] MEDS: Acetaminophen 325 MG TAB 650 MG PO (18:48)
[2025-07-04] MEDS: cefTRIAXone 1 GM/50 ML BAG IVPB (20:54)
[2025-07-04] MEDS: Atorvastatin 40 MG TAB 80 MG PO (21:00)
[2025-07-04] MEDS: rOPINIRole 0.5 MG TAB PO (21:01)
[2025-07-04] MEDS: clonazePAM 1 MG TAB 2 MG PO (21:01)
[2025-07-04] MEDS: AZITHROMYCIN 500 MG in Normal Saline 250 ML 250 MG IVPB (21:30)
[2025-07-05] VITALS (9 sets, daily range): BP systolic 116–126; BP diastolic 56–88; PULSE 95–112; RESP 16–17; TEMP 36.2–37.9; O2SAT 88–92
[2025-07-05] MEDS: Albuterol/Ipratropium 3 ML UPD VIAL UPD ×4 (01:29→20:32)
[2025-07-05] MEDS: Zolpidem 10 MG TAB PO ×2 (01:42→22:05)
[2025-07-05] MEDS: SUMAtriptan 50 MG TAB 100 MG PO (01:42)
[2025-07-05] MEDS: Levothyroxine 75 MCG TAB PO (05:16)
[2025-07-05 07:05] LABS: HCT 37.3 % (36.0-46.0); HGB 12.1 g/dL (11.2-15.7); MCH 28.8 pg (27.0-33.0); MCHC 32.4 % (32.0-36.0); MCV 89 fL (80-95); MPV 10.3 fL (8.0-11.0); Platelet Count 253 10^3/uL (130-400); RBC 4.20 10^6/uL (3.93-5.22); RDW 14.4 % (11.7-14.6); RDW-SD 46.2 fL; WBC 10.85 10^3/uL (4.4-10.8)
[2025-07-05 07:24] LABS: ALT 54 U/L (14-59); AST 55 U/L (15-37); Albumin 2.3 g/dL (3.4-5.0); Alkaline Phosphatase 113 U/L (46-116); Anion Gap 5.7 mmol/L (3-11); BUN 17 mg/dL (7-18); Bilirubin, Total 0.2 mg/dL (0.2-1.0); CO2 32.3 mmol/L (21.0-32.0); Calcium 9.0 mg/dL (8.5-10.1); Chloride 104 mmol/L (98-107); Estimated GFR 75.84 (mL/min/1.73m2); Glucose 105 mg/dL (74-106); Magnesium 1.6 mg/dL (1.8-2.4); Potassium 3.1 mmol/L (3.5-5.1); Sodium 142 mmol/L (136-145); Total Protein 7.1 g/dL (6.4-8.2)
[2025-07-05] MEDS: Enoxaparin 40 MG/0.4 ML SYR SC (08:23)
[2025-07-05] MEDS: Normal Saline Flush 10 ML SYR IVP ×3 (08:23→20:39)
[2025-07-05] MEDS: Ramipril 5 MG CAP 10 MG PO (08:23)
[2025-07-05] MEDS: Furosemide 40 MG/4 ML VIAL IVP ×2 (08:23→15:38)
[2025-07-05] MEDS: predniSONE 20 MG TAB 40 MG PO (08:24)
[2025-07-05] MEDS: Primidone 50 MG TAB PO ×2 (08:24→20:35)
[2025-07-05] MEDS: Multivitamin TAB 1 TAB PO (08:24)
[2025-07-05] MEDS: Loratidine 10 MG TAB PO (08:24)
[2025-07-05] MEDS: Montelukast 10 MG TAB PO (08:25)
[2025-07-05] MEDS: Pantoprazole 40 MG TABCR PO (08:25)
--- NOTE | 2025-07-05 09:44 | W.PM.PROGNOT ---
Date of Service Date of service: 07/05/25 Time of Service: 09:44 Objective Last Vital Signs Temp 36.5 C 07/05/25 07:18 Pulse 97 H 07/05/25 07:18 Resp 16 07/05/25 07:18 BP 119/60 07/05/25 07:18 Pulse Ox 89 L 07/05/25 07:18 Laboratory Results - last 24 hr 07/05/25 06:15 WBC 10.85 H RBC 4.20 Hgb 12.1 Hct 37.3 MCV 89 MCH 28.8 MCHC 32.4 RDW 14.4 Plt Count 253 MPV 10.3 Sodium 142 Potassium 3.1 L Chloride 104 Carbon Dioxide 32.3 H Anion Gap 5.7 BUN 17 Creatinine 0.8 Est GFR (CKD-EPI 2020) 75.84 Glucose 105 Calcium 9.0 Magnesium 1.6 L Total Bilirubin 0.2 AST 55 H ALT 54 Alkaline Phosphatase 113 Total Protein 7.1 Albumin 2.3 L PAWSS Have you Been Recently Intoxicated or Drunk Within the Last 30 days?: No Have you Ever Experienced Previous Episodes of Alcohol Withdrawal?: No Have you ever Experienced Withdrawal Seizures?: No Have you ever Experienced Delirium Tremens(DT)s?: No Have you ever undergone Alcohol Rehabilitation Treatment (i.e, inpt ot outpatient treatment programs)?: No Have you ever Experienced Blackouts?: No Have you ever Combined Alcohol with other Downers within the last 90 days?: No Have you ever Combined Alcohol with any other Substance of Abuse during the last 90 days?: No Positive Blood Alcohol level on Presentation? [PCS.BAL]: No Evidence of Increased Autonomic Activity (i.e. HR>120, tremor, sweating, agitation, nausea)?: No Result: 0
--- NOTE | 2025-07-05 09:51 | PGE_ITS ---
Date of Service Date of service: 07/05/25 Time of Service: 09:51 Assessment and Plan Assessment and plan (1) Acute hypoxic respiratory failure: Start date: 07/03/25 Status: Acute Assessment and plan: Continued on IV Rocephin and a Zithromax with oxygen supplementation and treatment of COPD exacerbation. Continue tele and IV furosemide On Oxygen at 2-3 l/min - wean to goals sat 88-92% (2) Sepsis: Status: Acute Assessment and plan: On admission sepsis criteria met with WBC 12.78, RR 25 and tachycardia 105 and respiratory source as per point 2 Blood Cx now negative at 24 H (3) Multifocal pneumonia: Start date: 07/03/25 Status: Acute Assessment and plan: Ongoing IV Rocephin and Zithromax with oxygen supplementation. WBC 10.85 from 12.78 Wean oxygen as tolerated- goal 88-92% Blood Cx negative at 24 h As per [facility] CT report: Consolidation in the right upper lobe left upper lobe and right middle lobe. There is atelectasis in the right lower lobe. Mucous plugging is seen in the right lower lobe Mucinex BID Tessalon (4) Pleural effusion associated with pulmonary infection: Start date: 07/03/25 Status: Acute Assessment and plan: No peripheral edema or weight gain. Upon CT scan review- R >L pleural effusions, trace L sided effusion Echo LVEF 55% Continue Lasix 40 mg IV twice daily. Avoid IV fluids. (5) COPD exacerbation: Start date: 07/03/25 Status: Acute Assessment and plan: Continue oral prednisone daily and as per point 3 Ongoing nebulizer treatments. (6) Hypokalemia: Start date: 07/03/25 Status: Resolved Assessment and plan: K 3.1 - replacement ordered Labs in AM (7) Acute hyperglycemia: Start date: 07/03/25 Status: Acute Assessment and plan: A1C 6.5 -Patient given history of diabetes but has hyperglycemia. continue finger sticks before meals and at bedtime with sensitive sliding scale insulin coverage while hospitalized Outpatient managment as per PCP on discharged (8) Elevated troponin level not due to acute coronary syndrome: Start date: 07/03/25 Status: Acute Assessment and plan: Patient had elevated troponins with no history of CAD, max 554 then down to 291 Telemetry -SR Echo LVEF 55% No wall motion abnormalities. (9) Hypothyroidism (acquired): Status: Chronic Assessment and plan: Continue outpatient levothyroxine dose TSH 1.85 (10) HTN (hypertension): Status: Chronic Assessment and plan: ongoing outpatient medical therapy w ACEI med (11) Hyperlipidemia: Status: Chronic Assessment and plan: Ongoing high-dose statin therapy. (12) Migraine headache: Status: Chronic Assessment and plan: Continue outpatient medical therapy with triptan drug . (13) Hypomagnesemia: Status: Acute (14) Restless leg syndrome: Status: Acute Assessment and plan: Ongoing Requip home dose for restless leg syndrome and essential tremor (15) On deep vein thrombosis (DVT) prophylaxis: Status: Acute Assessment and plan: ON LMWH Discussed with Dr. Ferreira Subjective Subjective Patient reports: still having pain, tolerating liquids well, tolerating a regular diet, voiding w/o difficulty, bowel movement and shortness of breath (improved); denies diarrhea, nausea, vomiting or fever Exam Narrative Exam Narrative: Alert and oriented X4, no neurological focal deficit,No JVD, decreased bibasilar breath sound R> L, no wheezing, SR HR 94, S1, S2, abdomen is non- acute, Objective Last Vital Signs Temp 36.5 C 07/05/25 07:18 Pulse 97 H 07/05/25 07:18 Resp 16 07/05/25 07:18 BP 119/60 07/05/25 07:18 Pulse Ox 89 L 07/05/25 07:18 Laboratory Results - last 24 hr 07/05/25 06:15 WBC 10.85 H RBC 4.20 Hgb 12.1 Hct 37.3 MCV 89 MCH 28.8 MCHC 32.4 RDW 14.4 Plt Count 253 MPV 10.3 Sodium 142 Potassium 3.1 L Chloride 104 Carbon Dioxide 32.3 H Anion Gap 5.7 BUN 17 Creatinine 0.8 Est GFR (CKD-EPI 2020) 75.84 Glucose 105 Calcium 9.0 Magnesium 1.6 L Total Bilirubin 0.2 AST 55 H ALT 54 Alkaline Phosphatase 113 Total Protein 7.1 Albumin 2.3 L PAWSS Have you Been Recently Intoxicated or Drunk Within the Last 30 days?: No Have you Ever Experienced Previous Episodes of Alcohol Withdrawal?: No Have you ever Experienced Withdrawal Seizures?: No Have you ever Experienced Delirium Tremens(DT)s?: No Have you ever undergone Alcohol Rehabilitation Treatment (i.e, inpt ot outpatient treatment programs)?: No Have you ever Experienced Blackouts?: No Have you ever Combined Alcohol with other Downers within the last 90 days?: No Have you ever Combined Alcohol with any other Substance of Abuse during the last 90 days?: No Positive Blood Alcohol level on Presentation? [PCS.BAL]: No Evidence of Increased Autonomic Activity (i.e. HR>120, tremor, sweating, agitation, nausea)?: No Result: 0 Time Spent with Patient Time Spent with Patient: >50 minutes Time was spent: preparing to see the patient(eg.review tests), obtaining and/or reviewing separately otained hiistory, ordering medications,tests, procedures, referring, communicating with other health career development counselor, indepentently interpreting results, counseling the patient, care coordination and other
[2025-07-05] MEDS: Budesonide/Formoterol 80/4.5 6.9 GM 60 PUFF INH IH ×2 (10:18→20:33)
--- NOTE | 2025-07-05 10:24 | CMPROGNOTE_ITS ---
Date of service: 07/05/25 Time of Service: 10:24 Care Management Progress Note Progress Note Text Progress Note Text: Jeannette was sitting up in bed when CM met with her. Her was lying on a cot in the room where he has been staying since she was admitted. Jeannette shared that the staff has been taking good care of both of them. They provide her with meals and a bed and a safe place to stay. Their dog was taken back home to [place] yesterday by a friend. Jeannette states she is feeling better although she is still requiring supplemental oxygen at 2L/min with oxygen saturation levels between 88 and 92%. She had some questions about possible cardiac involvement which CM deferred to the provider. Jeannette did have elevated troponins which down trended from 554 into the 400s then 291. Her BNP was also elevated at 3718. An echocardiogram done yesterday did not appear to have any major findings. Social Determinants of Health Screening Will the Patient Participate in the Screening?: Declined to provide
[2025-07-05] MEDS: Potassium Chloride 20 MEQ TABCR 40 MEQ PO (10:41)
[2025-07-05] MEDS: MAGNESIUM SULFATE 4 GM/100 ML BAG IV_INF (10:41)
[2025-07-05] MEDS: POTASSIUM CHLORIDE 20 MEQ/100 ML BAG 50 MEQ IV_INF (10:42)
[2025-07-05] MEDS: Insulin Aspart 300 UNITS/3 ML PEN SC ×3 (12:17→22:11)
[2025-07-05] MEDS: Benzonatate 100 MG CAP PO ×2 (14:36→20:35)
[2025-07-05] MEDS: POTASSIUM CHLORIDE 20 MEQ/100 ML BAG 25 MEQ IV_INF (14:42)
--- NOTE | 2025-07-05 16:34 | CHAPLAIN ---
Jeannette was resting in bed when I visited and her was sleeping on the cot next to her. They were vacationing at a friend's cabin nearby when Jeannette began not feeling well. 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 Jeannette talked about wanting to return to the cabin to build up her strength before driving back home to [place]. Jeannette and her were both pleasant and easily engaged in a conversation. Jeannette said her has Alzhiemer's disease. She asked that I offer prayers for them.
[2025-07-05] MEDS: SUMAtriptan 50 MG TAB 25 MG PO (18:22)
[2025-07-05] MEDS: clonazePAM 1 MG TAB 2 MG PO (20:34)
[2025-07-05] MEDS: Amitriptyline 10 MG TAB PO (20:35)
[2025-07-05] MEDS: rOPINIRole 0.5 MG TAB PO (20:35)
[2025-07-05] MEDS: Atorvastatin 40 MG TAB 80 MG PO (20:35)
[2025-07-05] MEDS: guaiFENesin 600 MG TABCR PO (20:36)
[2025-07-05] MEDS: cefTRIAXone 1 GM/50 ML BAG IVPB (20:36)
[2025-07-05] MEDS: AZITHROMYCIN 250 MG in Normal Saline 250 ML IVPB (20:37)
[2025-07-06] VITALS (14 sets, daily range): BP systolic 110–131; BP diastolic 64–69; PULSE 89–107; RESP 12–20; TEMP 36.6–38.8; O2SAT 70–93
[2025-07-06] MEDS: Albuterol/Ipratropium 3 ML UPD VIAL UPD ×4 (01:39→20:22)
[2025-07-06] MEDS: Acetaminophen 325 MG TAB 650 MG PO (02:14)
[2025-07-06] MEDS: Levothyroxine 75 MCG TAB PO (06:01)
[2025-07-06 06:31] LABS: HCT 39.7 % (36.0-46.0); HGB 12.7 g/dL (11.2-15.7); MCH 28.2 pg (27.0-33.0); MCHC 32.0 % (32.0-36.0); MCV 88 fL (80-95); MPV 9.8 fL (8.0-11.0); Platelet Count 269 10^3/uL (130-400); RBC 4.50 10^6/uL (3.93-5.22); RDW 14.6 % (11.7-14.6); RDW-SD 46.8 fL; WBC 11.15 10^3/uL (4.4-10.8)
[2025-07-06 07:05] LABS: ALT 54 U/L (14-59); AST 48 U/L (15-37); Albumin 2.4 g/dL (3.4-5.0); Alkaline Phosphatase 113 U/L (46-116); Anion Gap 6.7 mmol/L (3-11); BUN 19 mg/dL (7-18); Bilirubin, Total 0.2 mg/dL (0.2-1.0); CO2 34.3 mmol/L (21.0-32.0); Calcium 9.0 mg/dL (8.5-10.1); Chloride 101 mmol/L (98-107); Estimated GFR 65.84 (mL/min/1.73m2); Glucose 127 mg/dL (74-106); Magnesium 2.2 mg/dL (1.8-2.4); Potassium 3.7 mmol/L (3.5-5.1); Sodium 142 mmol/L (136-145); Total Protein 7.4 g/dL (6.4-8.2)
[2025-07-06] MEDS: Budesonide/Formoterol 80/4.5 6.9 GM 60 PUFF INH IH ×2 (08:48→20:25)
[2025-07-06] MEDS: predniSONE 20 MG TAB 40 MG PO (09:06)
[2025-07-06] MEDS: Pantoprazole 40 MG TABCR PO (09:06)
[2025-07-06] MEDS: Furosemide 40 MG/4 ML VIAL IVP ×2 (09:07→16:56)
[2025-07-06] MEDS: Loratidine 10 MG TAB PO (09:08)
[2025-07-06] MEDS: Montelukast 10 MG TAB PO (09:08)
[2025-07-06] MEDS: Ramipril 5 MG CAP 10 MG PO (09:08)
[2025-07-06] MEDS: Primidone 50 MG TAB PO ×2 (09:08→21:35)
[2025-07-06] MEDS: Benzonatate 100 MG CAP PO ×3 (09:08→21:34)
[2025-07-06] MEDS: guaiFENesin 600 MG TABCR PO ×2 (09:08→21:33)
[2025-07-06] MEDS: Multivitamin TAB 1 TAB PO (09:08)
[2025-07-06] MEDS: Normal Saline Flush 10 ML SYR IVP ×2 (09:09→21:35)
--- NOTE | 2025-07-06 09:11 | PDOC.CMPRO ---
Care Management Progress Note Progress Note Text Progress Note Text: Jeannette was sitting up in bed visiting with her when CM met with her. She was pleasant in interaction and was easy to engage. Yesterday attempts were made to wean her oxygen down however by this morning she was requiring 3.5 L/min as compared to the 2L required yesterday. She informed CM that she was taken off oxygen completely for the night and she felt that caused her breathing to get worse. She feels she will continue to need oxygen at night for a few more days but is not willing to consider new home oxygen. Jewell lives in [place] but is staying in [place] in a cabin with no wi-fi or cell service. She indicated she would not feel comfortable returning there at this time with her current oxygen needs. Discharge Potential Discharge Needs: PCP F/U Appt Anticipated Barriers to Discharge: Medical Status Patient/Family Education Needs: Review discharge instructions, discuss Ask Me Three Transportation: Private vehicle Plan: Anticipate Jeannette will be discharged home when medically stable. She will follow up with her PCP and plan of care and transport via private vehicle. CM will follow and continue to assess for discharge needs. Social Determinants of Health Screening Will the Patient Participate in the Screening?: Declined to provide
[2025-07-06] MEDS: Enoxaparin 40 MG/0.4 ML SYR SC (09:20)
--- NOTE | 2025-07-06 12:18 | W.PM.PROGNOT ---
Date of Service Date of service: 07/06/25 Time of Service: 12:19 Assessment and Plan Assessment and plan (1) Acute hypoxic respiratory failure: Status: Acute Assessment and plan: multifactoral with pneumonia, copd exac and fluid overload Continue current treatment with IV Rocephin and a Zithromax day 4/5 , steroids and diuretics continue weaning oxygen as able On Oxygen at 2-3 l/min - wean to goals sat 88-92% (2) Sepsis: Status: Resolved Assessment and plan: On admission sepsis criteria met with WBC 12.78, RR 25 and tachycardia 105 with respiratory source Blood Cx negative to date (3) Multifocal pneumonia: Status: Acute Assessment and plan: Rocephin and Zithromax day 4/5 Wean oxygen as tolerated- goal 88-92% Blood Cx negative to date I/S and acapella respiratory inhalers Mucinex BID Tessalon (4) Pleural effusion associated with pulmonary infection: Status: Acute Assessment and plan: No peripheral edema or weight gain. Upon CT scan review- R >L pleural effusions, trace L sided effusion Echo LVEF 55% Continue Lasix 40 mg IV twice daily. (5) COPD exacerbation: Status: Acute Assessment and plan: continue prednisone burst, consider slow taper at discharge Ongoing nebulizer treatments. (6) Hypokalemia: Status: Resolved Assessment and plan: repleted (7) Acute hyperglycemia: Status: Acute Assessment and plan: A1C 6.5 -Patient given history of diabetes with hyperglycemia which is anticipated in setting of steroids. continue finger sticks before meals and at bedtime with sensitive sliding scale insulin coverage while hospitalized Outpatient management as per PCP on discharged (8) Elevated troponin level not due to acute coronary syndrome: Status: Acute Assessment and plan: Patient had elevated troponins with no history of CAD, max 554 then down to 291 dc Telemetry -SR Echo LVEF 55% No wall motion abnormalities. (9) Hypothyroidism (acquired): Status: Chronic Assessment and plan: Continue outpatient levothyroxine dose TSH 1.85 (10) HTN (hypertension): Status: Chronic Assessment and plan: ongoing outpatient medical therapy w ACEI med (11) Hyperlipidemia: Status: Chronic Assessment and plan: Ongoing high-dose statin therapy. (12) Migraine headache: Status: Chronic Assessment and plan: Continue outpatient medical therapy with triptan drug . (13) Hypomagnesemia: Status: Acute (14) Restless leg syndrome: Status: Acute Assessment and plan: Ongoing Requip home dose for restless leg syndrome and essential tremor (15) On deep vein thrombosis (DVT) prophylaxis: Status: Acute Assessment and plan: ON LMWH Discussed with Dr. Ferreira Subjective Subjective Patient reports: no new complaints, tolerating liquids well, tolerating a regular diet, voiding w/o difficulty, shortness of breath and afebrile Interval history since last seen: required oxygen to be applied last night for oxygen sats persistently in the low 80's. has been using acapella and I/S Exam Narrative Exam Narrative: Elderly female of stated age no acute distress head is atraumatic eyes nonicteric noninjected oral mucosa is slightly dry neck full range of motion no JVD cardiovascular regular rate and rhythm no murmurs appreciated respirations even and unlabored she has fine rales in her bases bilaterally there is no wheezing abdomen round nontender neurologic she is awake alert oriented no focal deficits psychiatric appropriate mood and affect Objective Last Vital Signs Temp 37.1 C 07/06/25 07:37 Pulse 93 H 07/06/25 08:52 Resp 20 07/06/25 08:52 BP 110/64 07/06/25 07:37 Pulse Ox 90 L 07/06/25 08:46 Laboratory Results - last 24 hr 07/06/25 06:22 WBC 11.15 H RBC 4.50 Hgb 12.7 Hct 39.7 MCV 88 MCH 28.2 MCHC 32.0 RDW 14.6 Plt Count 269 MPV 9.8 Sodium 142 Potassium 3.7 Chloride 101 Carbon Dioxide 34.3 H Anion Gap 6.7 BUN 19 H Creatinine 0.9 Est GFR (CKD-EPI 2020) 65.84 Glucose 127 H Calcium 9.0 Magnesium 2.2 Total Bilirubin 0.2 AST 48 H ALT 54 Alkaline Phosphatase 113 Total Protein 7.4 Albumin 2.4 L PAWSS Have you Been Recently Intoxicated or Drunk Within the Last 30 days?: No Have you Ever Experienced Previous Episodes of Alcohol Withdrawal?: No Have you ever Experienced Withdrawal Seizures?: No Have you ever Experienced Delirium Tremens(DT)s?: No Have you ever undergone Alcohol Rehabilitation Treatment (i.e, inpt ot outpatient treatment programs)?: No Have you ever Experienced Blackouts?: No Have you ever Combined Alcohol with other Downers within the last 90 days?: No Have you ever Combined Alcohol with any other Substance of Abuse during the last 90 days?: No Positive Blood Alcohol level on Presentation? [PCS.BAL]: No Evidence of Increased Autonomic Activity (i.e. HR>120, tremor, sweating, agitation, nausea)?: No Result: 0 Time Spent with Patient Time Spent with Patient: 35-49 minutes Time was spent: preparing to see the patient(eg.review tests), obtaining and/or reviewing separately otained hiistory, ordering medications,tests, procedures, indepentently interpreting results and counseling the patient
[2025-07-06] MEDS: Insulin Aspart 300 UNITS/3 ML PEN SC ×2 (16:56→21:37)
[2025-07-06] MEDS: clonazePAM 1 MG TAB 2 MG PO (21:33)
[2025-07-06] MEDS: rOPINIRole 0.5 MG TAB PO (21:33)
[2025-07-06] MEDS: Zolpidem 10 MG TAB PO (21:34)
[2025-07-06] MEDS: Atorvastatin 40 MG TAB 80 MG PO (21:34)
[2025-07-06] MEDS: Amitriptyline 10 MG TAB PO (21:34)
[2025-07-06] MEDS: AZITHROMYCIN 250 MG in Normal Saline 250 ML IVPB (21:35)
[2025-07-06] MEDS: cefTRIAXone 1 GM/50 ML BAG IVPB (21:36)
[2025-07-07] VITALS (8 sets, daily range): BP systolic 119–140; BP diastolic 65–72; PULSE 72–106; RESP 20; TEMP 36.7–37.3; O2SAT 89–93
[2025-07-07] MEDS: Zolpidem 5 MG TAB PO (01:04)
[2025-07-07] MEDS: Pantoprazole 40 MG TABCR PO (07:10)
[2025-07-07] MEDS: Ramipril 5 MG CAP 10 MG PO (08:12)
[2025-07-07] MEDS: Montelukast 10 MG TAB PO (08:13)
[2025-07-07] MEDS: guaiFENesin 600 MG TABCR PO (08:13)
[2025-07-07] MEDS: Primidone 50 MG TAB PO ×2 (08:13→21:33)
[2025-07-07] MEDS: Loratidine 10 MG TAB PO (08:13)
[2025-07-07] MEDS: Benzonatate 100 MG CAP PO ×3 (08:13→21:35)
[2025-07-07] MEDS: Levothyroxine 75 MCG TAB PO (08:14)
[2025-07-07] MEDS: predniSONE 20 MG TAB 40 MG PO (08:14)
[2025-07-07] MEDS: Multivitamin TAB 1 TAB PO (08:14)
[2025-07-07] MEDS: Furosemide 40 MG/4 ML VIAL IVP ×2 (08:14→12:59)
[2025-07-07] MEDS: Enoxaparin 40 MG/0.4 ML SYR SC (08:30)
[2025-07-07] MEDS: Budesonide/Formoterol 80/4.5 6.9 GM 60 PUFF INH IH ×2 (09:39→20:54)
[2025-07-07] MEDS: Albuterol/Ipratropium 3 ML UPD VIAL UPD ×3 (09:39→20:43)
[2025-07-07] MEDS: Normal Saline Flush 10 ML SYR IVP ×2 (09:48→21:37)
--- NOTE | 2025-07-07 10:19 | W.PM.PROGNOT ---
Date of Service Date of service: 07/07/25 Time of Service: 10:19 Assessment and Plan Assessment and plan (1) Acute hypoxic respiratory failure: Status: Acute Assessment and plan: multifactoral with pneumonia, copd exac and fluid overload Continue current treatment with IV Rocephin and a Zithromax on day 5, steroids and increased diuretics Ongoing scheduled and PRN nebs continue weaning oxygen as able On Oxygen needs down to 1 l/ min for sat 92%- wean to goals sat 88-92% (2) Sepsis: Status: Resolved Assessment and plan: On admission sepsis criteria met with WBC 12.78, RR 25 and tachycardia 105 with respiratory source Blood Cx negative X 72 hours (3) Multifocal pneumonia: Status: Acute Assessment and plan: Rocephin and Zithromax day 03/12 Wean oxygen as tolerated- goal 88-92% Blood Cx negative - 72 hours Ongoing I/S and acapella -respiratory inhalers Increased Mucinex BID Tessalon PO TID (4) Pleural effusion associated with pulmonary infection: Status: Acute Assessment and plan: No peripheral edema or weight gain. Upon CT scan review- R >L pleural effusions, trace L sided effusion-1.1 cm in diameter pretracheal lymph node, mucus plugging also mentioned to R lung 07/03/2025 Echo report: LVEF 55%, normal LV & RV function w/o wall motion abnormalities- mild mitral and tricuspid regurgitation Lasix 40 mg IV twice daily increased to 80 mg BID will revaluate in AM then short course of oral on discharge (5) COPD exacerbation: Status: Acute Assessment and plan: Ongoing prednisone burst, consider slow taper at discharge Ongoing nebulizer treatments. on ICS/ LAMA INH BID (6) Hypokalemia: Status: Resolved Assessment and plan: K - 3.7 s/p supplementation BMP in AM (7) Acute hyperglycemia: Status: Acute Assessment and plan: A1C 6.5 -Patient given history of diabetes with hyperglycemia which is anticipated in setting of steroids. continue finger sticks before meals and at bedtime with sensitive sliding scale insulin coverage while hospitalized Outpatient management as per PCP on discharged (8) Elevated troponin level not due to acute coronary syndrome: Status: Acute Assessment and plan: Resolved Patient had elevated troponins with no history of CAD, max 554 then down to 291 dc Telemetry -SR Echo LVEF 55% No wall motion abnormalities. (9) Hypothyroidism (acquired): Status: Chronic Assessment and plan: Ongoing outpatient levothyroxine dose TSH 1.85 (10) HTN (hypertension): Status: Chronic Assessment and plan: continue outpatient medical therapy (11) Hyperlipidemia: Status: Chronic Assessment and plan: continue home high-dose statin therapy. (12) Migraine headache: Status: Chronic Assessment and plan: Ongoing outpatient medical therapy with triptan drug . (13) Hypomagnesemia: Status: Acute Assessment and plan: Resolved Mg in AM (14) Restless leg syndrome: Status: Acute Assessment and plan: Continue Requip home dose for restless leg syndrome and essential tremor (15) On deep vein thrombosis (DVT) prophylaxis: Status: Acute Assessment and plan: Ongoing Lovenox Discussed with Dr. Ferreira Subjective Subjective Patient reports: still having pain, tolerating liquids well, tolerating a regular diet, voiding w/o difficulty, bowel movement, shortness of breath (improved) and other (But O2 up to 2.5 l/min overnight ); denies diarrhea, nausea, vomiting or fever Exam Narrative Exam Narrative: Alert and oriented X4, no neurological focal deficit,No JVD, oxygen at 1l/min decreased bibasilar breath sound R> L, no wheezing but better air movement s/p nebs, heart is regular , no murmur- trace edema to LEs - , abdomen is non-distended , soft and non -tender, Objective Last Vital Signs Temp 37.3 C 07/07/25 08:01 Pulse 104 H 07/07/25 09:39 Resp 20 07/07/25 07:42 BP 119/65 07/07/25 08:01 Pulse Ox 92 07/07/25 09:39 PAWSS Have you Been Recently Intoxicated or Drunk Within the Last 30 days?: No Have you Ever Experienced Previous Episodes of Alcohol Withdrawal?: No Have you ever Experienced Withdrawal Seizures?: No Have you ever Experienced Delirium Tremens(DT)s?: No Have you ever undergone Alcohol Rehabilitation Treatment (i.e, inpt ot outpatient treatment programs)?: No Have you ever Experienced Blackouts?: No Have you ever Combined Alcohol with other Downers within the last 90 days?: No Have you ever Combined Alcohol with any other Substance of Abuse during the last 90 days?: No Positive Blood Alcohol level on Presentation? [PCS.BAL]: No Evidence of Increased Autonomic Activity (i.e. HR>120, tremor, sweating, agitation, nausea)?: No Result: 0 Time Spent with Patient Time Spent with Patient: 35-49 minutes Time was spent: preparing to see the patient(eg.review tests), obtaining and/or reviewing separately otained hiistory, ordering medications,tests, procedures, referring, communicating with other health healthcare interpreter, indepentently interpreting results, counseling the patient and care coordination
[2025-07-07] MEDS: Insulin Aspart 300 UNITS/3 ML PEN SC ×3 (12:59→21:38)
[2025-07-07] MEDS: Furosemide 40 MG/4 ML VIAL 80 MG IVP (17:14)
[2025-07-07] MEDS: rOPINIRole 0.5 MG TAB PO (21:33)
[2025-07-07] MEDS: clonazePAM 1 MG TAB 2 MG PO (21:33)
[2025-07-07] MEDS: Amitriptyline 10 MG TAB PO (21:34)
[2025-07-07] MEDS: Atorvastatin 40 MG TAB 80 MG PO (21:34)
[2025-07-07] MEDS: guaiFENesin 600 MG TABCR 1200 MG PO (21:35)
[2025-07-07] MEDS: cefTRIAXone 1 GM/50 ML BAG IVPB (21:35)
[2025-07-07] MEDS: AZITHROMYCIN 250 MG in Normal Saline 250 ML IVPB (21:37)
[2025-07-08 01:44] VITALS: TEMP 36.5
[2025-07-08] MEDS: Zolpidem 10 MG TAB PO ×2 (01:54→21:52)
[2025-07-08] MEDS: Levothyroxine 75 MCG TAB PO (06:44)
[2025-07-08 07:10] LABS: Abs Immature Grans 1.46 10^3/uL (0.0-0.06); HCT 40.0 % (36.0-46.0); HGB 12.9 g/dL (11.2-15.7); MCH 28.5 pg (27.0-33.0); MCHC 32.3 % (32.0-36.0); MCV 89 fL (80-95); MPV 9.7 fL (8.0-11.0); Platelet Count 282 10^3/uL (130-400); RBC 4.52 10^6/uL (3.93-5.22); RDW 14.4 % (11.7-14.6); RDW-SD 46.1 fL; WBC 14.02 10^3/uL (4.4-10.8)
[2025-07-08 07:25] LABS: Anion Gap 6.5 mmol/L (3-11); BUN 11 mg/dL (7-18); CO2 36.5 mmol/L (21.0-32.0); Calcium 8.8 mg/dL (8.5-10.1); Chloride 95 mmol/L (98-107); Estimated GFR 92.39 (mL/min/1.73m2); Glucose 104 mg/dL (74-106); Potassium 3.5 mmol/L (3.5-5.1); Sodium 138 mmol/L (136-145)
[2025-07-08 07:51] LABS: Magnesium 1.6 mg/dL (1.8-2.4)
[2025-07-08 08:15] VITALS: BP 110/70; PULSE 97; RESP 89; TEMP 36.8
[2025-07-08 08:40] LABS: RBC Morphology Normal
[2025-07-08] MEDS: Benzonatate 100 MG CAP PO ×3 (08:59→21:56)
[2025-07-08] MEDS: Ramipril 5 MG CAP 10 MG PO (08:59)
[2025-07-08] MEDS: guaiFENesin 600 MG TABCR 1200 MG PO ×2 (08:59→21:52)
[2025-07-08] MEDS: Enoxaparin 40 MG/0.4 ML SYR SC (08:59)
[2025-07-08] MEDS: Pantoprazole 40 MG TABCR PO (09:00)
[2025-07-08] MEDS: Furosemide 40 MG/4 ML VIAL 80 MG IVP ×2 (09:00→15:24)
[2025-07-08] MEDS: predniSONE 20 MG TAB 40 MG PO (09:00)
[2025-07-08] MEDS: Primidone 50 MG TAB PO ×2 (09:00→21:52)
[2025-07-08] MEDS: Multivitamin TAB 1 TAB PO (09:01)
[2025-07-08] MEDS: Montelukast 10 MG TAB PO (09:01)
[2025-07-08] MEDS: Loratidine 10 MG TAB PO (09:01)
[2025-07-08] MEDS: Normal Saline Flush 10 ML SYR IVP ×2 (09:04→21:58)
[2025-07-08 10:02] VITALS: PULSE 101; O2SAT 89
[2025-07-08] MEDS: Budesonide/Formoterol 80/4.5 6.9 GM 60 PUFF INH IH ×2 (10:02→20:11)
[2025-07-08] MEDS: Albuterol/Ipratropium 3 ML UPD VIAL UPD ×3 (10:02→20:10)
[2025-07-08 10:10] VITALS: O2SAT 89
[2025-07-08] MEDS: Albuterol 2.5 MG/3 ML INH SOLN VIAL UPD (12:42)
[2025-07-08] MEDS: Insulin Aspart 300 UNITS/3 ML PEN SC ×3 (12:56→22:26)
[2025-07-08 16:08] VITALS: PULSE 106; O2SAT 91
--- NOTE | 2025-07-08 16:53 | PGE_ITS ---
Date of Service Date of service: 07/08/25 Time of Service: 13:00 Assessment and Plan Assessment and plan (1) Acute hypoxic respiratory failure: Status: Acute Assessment and plan: multifactoral with pneumonia, copd exac and fluid overload as per pleural effusions on CT On IV Rocephin and Zithromax5, steroids and diuretics Continue scheduled and PRN nebs On RA at rest On Oxygen maxed out to 3 l on admission now on RA but desat to 84% on ambulation and reported chest pain resolving with improved saturation Stated that she would be unable to go to needs down to 1 l/ min for sat 92%- wean to goals sat 88-92% (2) Sepsis: Status: Resolved Assessment and plan: sepsis criteria met on admission with WBC 12.78, RR 25 and tachycardia 105 with respiratory source Persisting leukocytosis on oral prednisone Blood Cx negative to date (3) Multifocal pneumonia: Status: Acute Assessment and plan: Ongoing Rocephin and Zithromax Wean oxygen and on RA at rest Ongoing I/S and acapella -respiratory inhalers Continue Mucinex BID and Tessalon PO TID (4) Pleural effusion associated with pulmonary infection: Status: Acute Assessment and plan: No peripheral edema or weight gain. Upon CT scan review- R >L pleural effusions, trace L sided effusion-1.1 cm in diameter pretracheal lymph node, mucus plugging also mentioned to R lung 07/03/2025 Echo report: LVEF 55%, normal LV & RV function w/o wall motion abnormalities- mild mitral and tricuspid regurgitation Lasix 80 mg BID then short course of oral on discharge BMP in AM (5) COPD exacerbation: Status: Acute Assessment and plan: Ongoing prednisone burst, consider slow taper at discharge Ongoing nebulizer treatments. on ICS/ LAMA INH BID (6) Hypokalemia: Status: Resolved Assessment and plan: Resolved s/p supplementation BMP in AM (7) Acute hyperglycemia: Status: Acute Assessment and plan: A1C 6.5 -Patient given history of diabetes with hyperglycemia which is anticipated in setting of steroids. continue finger sticks before meals and at bedtime with sensitive sliding scale insulin coverage while hospitalized Outpatient management as per PCP on discharged (8) Elevated troponin level not due to acute coronary syndrome: Status: Acute Assessment and plan: Resolved E;evated troponins on admission with no history of CAD, max 554 then down to 291 d/c Telemetry -SR Echo LVEF 55% No wall motion abnormalities. (9) Hypothyroidism (acquired): Status: Chronic Assessment and plan: On outpatient levothyroxine dose TSH 1.85 (10) HTN (hypertension): Status: Chronic Assessment and plan: continue outpatient medical therapy (11) Hyperlipidemia: Status: Chronic Assessment and plan: continue home high-dose statin therapy. (12) Migraine headache: Status: Chronic Assessment and plan: Ongoing outpatient medical therapy with triptan drug . (13) Hypomagnesemia: Status: Acute Assessment and plan: Mag 1.6- supplemented Mg in AM (14) Restless leg syndrome: Status: Acute Assessment and plan: On Requip home dose for restless leg syndrome and essential tremor (15) On deep vein thrombosis (DVT) prophylaxis: Status: Acute Assessment and plan: Continue LMWH Discussed with Dr. Craig Subjective Subjective Patient reports: feels better, still having pain, tolerating liquids well, tolerating a regular diet, voiding w/o difficulty, bowel movement, shortness of breath (improved at rest but unable to tolerate ) and other (But O2 up to 2.5 l/min overnight ); denies diarrhea, nausea, vomiting or fever Exam Narrative Exam Narrative: Alert and oriented X4, no neurological focal deficit,no JVD, RA at rest , clear upper lobes decreased R base, improved air movement, heart is regular S1 S2 , no murmur- , abdomen is non-distended , soft and non -tender Objective Last Vital Signs Temp 36.8 C 07/08/25 08:15 Pulse 106 H 07/08/25 16:08 Resp 89 H 07/08/25 08:15 BP 110/70 07/08/25 08:15 Pulse Ox 91 L 07/08/25 16:08 Laboratory Results - last 24 hr 07/08/25 05:50 WBC 14.02 H RBC 4.52 Hgb 12.9 Hct 40.0 MCV 89 MCH 28.5 MCHC 32.3 RDW 14.4 Plt Count 282 MPV 9.7 Immature Gran % See Differential Neutrophils % 53.0 Band Neutrophils % 5 Lymphocytes % 26.0 Monocytes % 6.0 Eosinophils % 2.0 Basophils % 1.0 Metamyelocytes % 4 Myelocytes % 3 Nucleated RBC % 0.0 Absolute Neutrophils 8.13 H Absolute Lymphocytes 3.65 H Absolute Monocytes 0.84 H Absolute Eosinophils 0.28 Absolute Basophils 0.14 RBC Morphology Normal Sodium 138 Potassium 3.5 Chloride 95 L Carbon Dioxide 36.5 H Anion Gap 6.5 BUN 11 Creatinine 0.6 Est GFR (CKD-EPI 2020) 92.39 Glucose 104 Calcium 8.8 Magnesium 1.6 L PAWSS Have you Been Recently Intoxicated or Drunk Within the Last 30 days?: No Have you Ever Experienced Previous Episodes of Alcohol Withdrawal?: No Have you ever Experienced Withdrawal Seizures?: No Have you ever Experienced Delirium Tremens(DT)s?: No Have you ever undergone Alcohol Rehabilitation Treatment (i.e, inpt ot outpatient treatment programs)?: No Have you ever Experienced Blackouts?: No Have you ever Combined Alcohol with other Downers within the last 90 days?: No Have you ever Combined Alcohol with any other Substance of Abuse during the last 90 days?: No Positive Blood Alcohol level on Presentation? [PCS.BAL]: No Evidence of Increased Autonomic Activity (i.e. HR>120, tremor, sweating, agitation, nausea)?: No Result: 0 Time Spent with Patient Time Spent with Patient: >50 minutes Time was spent: preparing to see the patient(eg.review tests), obtaining and/or reviewing separately otained hiistory, ordering medications,tests, procedures, referring, communicating with other health childcare teacher, indepentently int erpreting results, counseling the patient, care coordination and other
[2025-07-08] MEDS: MAGNESIUM SULFATE 4 GM/100 ML BAG IV_INF (18:24)
[2025-07-08 20:10] VITALS: PULSE 101; RESP 18; O2SAT 90
[2025-07-08] MEDS: AZITHROMYCIN 250 MG in Normal Saline 250 ML IVPB (21:50)
[2025-07-08] MEDS: Atorvastatin 40 MG TAB 80 MG PO (21:52)
[2025-07-08] MEDS: Amitriptyline 10 MG TAB PO (21:52)
[2025-07-08] MEDS: clonazePAM 1 MG TAB 2 MG PO (21:54)
[2025-07-08] MEDS: rOPINIRole 0.5 MG TAB PO (21:56)
[2025-07-08] MEDS: cefTRIAXone 1 GM/50 ML BAG IVPB (21:56)
[2025-07-09] VITALS (7 sets, daily range): BP systolic 114; BP diastolic 77; PULSE 93–101; RESP 14–18; TEMP 36.8–37; O2SAT 90–93
[2025-07-09] MEDS: Zolpidem 5 MG TAB 2.5 MG PO (01:40)
[2025-07-09] MEDS: Levothyroxine 75 MCG TAB PO (06:12)
[2025-07-09 06:30] LABS: Abs Immature Grans 1.21 10^3/uL (0.0-0.06); HCT 39.0 % (36.0-46.0); HGB 12.5 g/dL (11.2-15.7); MCH 28.4 pg (27.0-33.0); MCHC 32.1 % (32.0-36.0); MCV 89 fL (80-95); MPV 9.5 fL (8.0-11.0); Platelet Count 271 10^3/uL (130-400); RBC 4.40 10^6/uL (3.93-5.22); RDW 14.5 % (11.7-14.6); RDW-SD 46.5 fL; WBC 13.26 10^3/uL (4.4-10.8)
[2025-07-09 06:40] LABS: Anion Gap 3.1 mmol/L (3-11); BUN 17 mg/dL (7-18); CO2 36.9 mmol/L (21.0-32.0); Calcium 8.6 mg/dL (8.5-10.1); Chloride 96 mmol/L (98-107); Estimated GFR 75.84 (mL/min/1.73m2); Glucose 135 mg/dL (74-106); Magnesium 2.4 mg/dL (1.8-2.4); Potassium 4.0 mmol/L (3.5-5.1); Sodium 136 mmol/L (136-145)
[2025-07-09 07:23] LABS: RBC Morphology Normal
[2025-07-09] MEDS: Albuterol/Ipratropium 3 ML UPD VIAL UPD (07:42)
[2025-07-09] MEDS: Budesonide/Formoterol 80/4.5 6.9 GM 60 PUFF INH IH ×2 (07:44→21:25)
[2025-07-09] MEDS: Ramipril 5 MG CAP 10 MG PO (08:52)
[2025-07-09] MEDS: predniSONE 20 MG TAB 40 MG PO (08:52)
[2025-07-09] MEDS: Multivitamin TAB 1 TAB PO (08:53)
[2025-07-09] MEDS: Loratidine 10 MG TAB PO (08:53)
[2025-07-09] MEDS: Pantoprazole 40 MG TABCR PO (08:53)
[2025-07-09] MEDS: Primidone 50 MG TAB PO ×2 (08:53→22:25)
[2025-07-09] MEDS: guaiFENesin 600 MG TABCR 1200 MG PO ×2 (08:53→22:24)
[2025-07-09] MEDS: Benzonatate 100 MG CAP PO ×3 (08:53→22:24)
[2025-07-09] MEDS: Montelukast 10 MG TAB PO (08:53)
[2025-07-09] MEDS: Furosemide 40 MG/4 ML VIAL 80 MG IVP ×2 (08:53→16:48)
[2025-07-09] MEDS: Normal Saline Flush 10 ML SYR IVP (08:54)
[2025-07-09] MEDS: Enoxaparin 40 MG/0.4 ML SYR SC (08:54)
[2025-07-09] MEDS: Insulin Aspart 300 UNITS/3 ML PEN SC ×3 (12:58→22:32)
--- NOTE | 2025-07-09 16:11 | W.PM.PROGNOT ---
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 [place]) - Has to drive to [place] and take care of her goals sat 88-92% (2) Sepsis: Status: Resolved Assessment and plan: sepsis criteria met on admission with WBC 12.78, RR 25 and tachycardia 105 with respiratory source Persisting leukocytosis on oral prednisone Blood Cx negative (3) Multifocal pneumonia: Status: Acute Assessment and plan: Ongoing Rocephin and Zithromax 6/7 days Wean oxygen and on RA at rest Ongoing I/S and acapella -respiratory inhalers Continue Mucinex BID and Tessalon PO TID (4) Pleural effusion associated with pulmonary infection: Status: Acute Assessment and plan: No peripheral edema or weight gain. 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 Ongoing ICS/ LAMA INH BID (6) Hypokalemia: Status: Resolved Assessment and plan: Resolved s/p supplementation BMP in AM (7) Acute hyperglycemia: Status: Acute Assessment and plan: A1C 6.5 -Patient given history of diabetes with hyperglycemia which is anticipated in setting of steroids. Finger sticks before meals and at bedtime with sensitive sliding scale insulin coverage while hospitalized Outpatient management as per PCP when discharged (8) Elevated troponin level not due to acute coronary syndrome: Status: Acute Assessment and plan: Resolved Elevated troponins on admission with no history of CAD, max 554 then down to 291 Telemetry -SR - discontinued Echo LVEF 55% No wall motion abnormalities. (9) Hypothyroidism (acquired): Status: Chronic Assessment and plan: Outpatient levothyroxine dose TSH 1.85 (10) HTN (hypertension): Status: Chronic Assessment and plan: Outpatient medical therapy (11) Hyperlipidemia: Status: Chronic Assessment and plan: On home high-dose statin therapy. (12) Migraine headache: Status: Chronic Assessment and plan: Outpatient medical therapy with triptan drug . (13) Hypomagnesemia: Status: Acute Assessment and plan: Resolved Mag 1.6- supplemented Mg in AM (14) Restless leg syndrome: Status: Acute Assessment and plan: On Requip home dose for restless leg syndrome and essential tremor (15) On deep vein thrombosis (DVT) prophylaxis: Status: Acute Assessment and plan: LMWH Discussed with Dr. Craig Subjective Subjective Patient reports: no new complaints, feels better, tolerating liquids well, tolerating a regular diet, voiding w/o difficulty, flatus, bowel movement and afebrile; denies diarrhea, nausea, vomiting or shortness of breath Exam Narrative Exam Narrative: Alert and oriented X4, no neurological focal deficit, on RA , clear lungs w decreased R base, heart is regular S1 S2 , no murmur- - , abdomen is non-distended, no furhter LE edema , soft and non -tender Objective Last Vital Signs Temp 36.8 C 07/09/25 07:08 Pulse 97 H 07/09/25 13:55 Resp 14 07/09/25 13:55 BP 114/77 07/09/25 07:08 Pulse Ox 92 07/09/25 13:55 Laboratory Results - last 24 hr 07/09/25 06:08 WBC 13.26 H RBC 4.40 Hgb 12.5 Hct 39.0 MCV 89 MCH 28.4 MCHC 32.1 RDW 14.5 Plt Count 271 MPV 9.5 Immature Gran % See Differential Neutrophils % 67.0 Lymphocytes % 22.0 Monocytes % 4.0 Eosinophils % 2.0 Basophils % 0.0 Metamyelocytes % 3 Myelocytes % 2 Nucleated RBC % 0.0 Absolute Neutrophils 8.88 H Absolute Lymphocytes 2.92 Absolute Monocytes 0.53 Absolute Eosinophils 0.27 Absolute Basophils 0.00 RBC Morphology Normal Sodium 136 Potassium 4.0 Chloride 96 L Carbon Dioxide 36.9 H Anion Gap 3.1 BUN 17 Creatinine 0.8 Est GFR (CKD-EPI 2020) 75.84 Glucose 135 H Calcium 8.6 Magnesium 2.4 PAWSS Have you Been Recently Intoxicated or Drunk Within the Last 30 days?: No Have you Ever Experienced Previous Episodes of Alcohol Withdrawal?: No Have you ever Experienced Withdrawal Seizures?: No Have you ever Experienced Delirium Tremens(DT)s?: No Have you ever undergone Alcohol Rehabilitation Treatment (i.e, inpt ot outpatient treatment programs)?: No Have you ever Experienced Blackouts?: No Have you ever Combined Alcohol with other Downers within the last 90 days?: No Have you ever Combined Alcohol with any other Substance of Abuse during the last 90 days?: No Positive Blood Alcohol level on Presentation? [PCS.BAL]: No Evidence of Increased Autonomic Activity (i.e. HR>120, tremor, sweating, agitation, nausea)?: No Result: 0 Time Spent with Patient Time Spent with Patient: >50 minutes Time was spent: preparing to see the patient(eg.review tests), obtaining and/or reviewing separately otained hiistory, ordering medications,tests, procedures, referring, communicating with other health neurocritical care physician, indepentently interpreting results, counseling the patient, care coordination and other
[2025-07-09] MEDS: Albuterol 2.5 MG/3 ML INH SOLN VIAL UPD (16:50)
[2025-07-09] MEDS: AZITHROMYCIN 250 MG in Normal Saline 250 ML IVPB (20:14)
[2025-07-09] MEDS: cefTRIAXone 1 GM/50 ML BAG IVPB (20:15)
[2025-07-09] MEDS: rOPINIRole 0.5 MG TAB PO (22:24)
[2025-07-09] MEDS: Zolpidem 6.25 MG TABCR 12.5 MG PO (22:24)
[2025-07-09] MEDS: Amitriptyline 10 MG TAB PO (22:24)
[2025-07-09] MEDS: Lactobacillus Acidophilus CAP 1 CAP PO (22:24)
[2025-07-09] MEDS: clonazePAM 1 MG TAB 2 MG PO (22:25)
[2025-07-09] MEDS: Atorvastatin 40 MG TAB 80 MG PO (22:30)
[2025-07-09] MEDS: Insulin Glargine 300 UNITS/3 ML PEN SC (22:52)
[2025-07-10] MEDS: Normal Saline Flush 10 ML SYR IVP ×2 (04:23→07:59)
[2025-07-10] MEDS: Lactobacillus Acidophilus CAP 1 CAP PO (07:54)
[2025-07-10] MEDS: guaiFENesin 600 MG TABCR 1200 MG PO (07:54)
[2025-07-10] MEDS: Furosemide 40 MG/4 ML VIAL 80 MG IVP (07:54)
[2025-07-10] MEDS: Primidone 50 MG TAB PO (07:54)
[2025-07-10] MEDS: Loratidine 10 MG TAB PO (07:55)
[2025-07-10] MEDS: Benzonatate 100 MG CAP PO (07:55)
[2025-07-10] MEDS: predniSONE 20 MG TAB 40 MG PO (07:55)
[2025-07-10] MEDS: Pantoprazole 40 MG TABCR PO (07:55)
[2025-07-10] MEDS: Ramipril 5 MG CAP 10 MG PO (07:57)
[2025-07-10] MEDS: Enoxaparin 40 MG/0.4 ML SYR SC (07:57)
[2025-07-10] MEDS: Multivitamin TAB 1 TAB PO (07:57)
[2025-07-10] MEDS: Montelukast 10 MG TAB PO (07:57)
[2025-07-10] MEDS: Levothyroxine 75 MCG TAB PO (07:59)
[2025-07-10 08:12] VITALS: BP 110/88; PULSE 89; RESP 18; TEMP 36.6; O2SAT 93
[2025-07-10] MEDS: Budesonide/Formoterol 80/4.5 6.9 GM 60 PUFF INH IH (09:27)
[2025-07-10 09:36] VITALS: O2SAT 91
[2025-07-10] MEDS: Insulin Aspart 300 UNITS/3 ML PEN SC (12:24)
--- NOTE | 2025-07-10 13:05 | DSE_ITS ---
Date of service: 07/10/25 Time of Service: 13:05 DS: Diagnosis Discharge Diagnosis (1) Acute hypoxic respiratory failure: Status: Acute (2) Sepsis: Status: Resolved (3) Multifocal pneumonia: Status: Acute (4) Pleural effusion associated with pulmonary infection: Status: Acute (5) COPD exacerbation: Status: Acute (6) Hypokalemia: Status: Resolved (7) Acute hyperglycemia: Status: Acute (8) Elevated troponin level not due to acute coronary syndrome: Status: Acute (9) Hypothyroidism (acquired): Status: Chronic (10) HTN (hypertension): Status: Chronic (11) Hyperlipidemia: Status: Chronic (12) Migraine headache: Status: Chronic (13) Hypomagnesemia: Status: Acute (14) Restless leg syndrome: Status: Acute Discharge Plan Disposition Patient Disposition: Home Condition: Improving Discharge Details Reason For Visit: Acute hypoxic respiratory failure, Multifocal pneu Admit Date/Time: 07/03/25 20:56 Admit Provider: Blas Hurtado Attending Provider: Blas Hurtado [facility] Hospital Course: This is a 79-year-old female patient past medical history significant for COPD presented to the emergency department with acute hypoxic respiratory failure found to have bilateral opacities on CAT scan treated for multifocal pneumonia with ceftriaxone and azithromycin. She was also placed on steroids. She was slow to wean oxygen. She also was treated with Lasix for fluid overload. She was well diuresed. Echocardiogram showed no acute wall motion abnormalities with a EF of 55%. She has been weaned off oxygen and safely reambulated. She is eating and drinking and bowels and bladder functioning. She has completed 5 days of antibiotics which can be discontinued at discharge. She no longer needs to be diuresed as she appears euvolemic. She has completed 6 days of a steroid burst which can be discontinued at discharge as her lungs are clear with no wheezing. She should resume usual medications as previously directed. She should also see her primary care provider for a repeat CAT scan to evaluate the bilateral pulmonary radio opacities to exclude some other underlying pathology, also will be referred for outpatient pulmonary consultation. Hospital course complicated with elevated blood sugars in the setting of steroids this should resolve off steroids but reviewed by PCP at outpatient appointment. Also noted to have persistent leukocytosis with a white count of 13 also suspected to be due to steroid burst. Discharge discussed with Dr. Craig Recommendations for Follow Up Recommended tests to be ordered by follow up provider: Follow-up with automobile assembler in [place] for repeat chest imaging Home Meds and New Rx's Prescriptions: New BiomePRO 50 billion cell capsule,delayed release(DR/EC) 1 cap PO DAILY Qty: 10 0RF Continued multivitamin Tablet 1 tab PO DAILY primidone 50 mg tablet 50 mg PO BID atorvastatin [Lipitor] 80 mg tablet 80 mg PO DAILY amitriptyline 10 mg tablet 10 mg PO BID ropinirole 0.5 mg tablet 0.5 mg PO HS clonazepam [Klonopin] 2 mg tablet 2 mg PO QHS Rx Instructions: administer 30 minutes before bedtime montelukast 10 mg tablet 10 mg PO DAILY loratadine [Allergy Relief (loratadine)] 10 mg tablet 10 mg PO DAILY ramipril 10 mg capsule 10 mg PO DAILY tizanidine 4 mg capsule 4 mg PO BID PRN pantoprazole [address] for susp in packet 40 mg PO DAILY levothyroxine 75 mcg capsule 75 mcg PO DAILY sumatriptan succinate [Imitrex] 25 mg PO PRN PRN (Reason: migraine headache) Rx Instructions: orally PRN; take 25mg, repeat in 2 hours if migraine still present. May repeat once in 24 hours fluticasone furoate-vilanterol [Breo Ellipta] 100-25 mcg/dose blister with device 1 inh inhalation DAILY zolpidem 12.5 mg tablet,ext release multiphase 12.5 mg PO HS Gemtesa 75 mg tablet 75 mg PO DAILY Discharge Instructions Instructions: Pneumonia in adults Additional Instructions: You have completed your course of antibiotics to treat pneumonia and have completed a steroid burst. You do not need any prescriptions at discharge Your blood sugars should be improved now off the steroids, continue to check them and work with your outpatient provider for any diabetes management and education. You should follow-up with your primary care provider for repeat CT imaging recommended to exclude underlying pulmonary pathology regarding bilateral upper lobe radiopacities. Your echocardiogram showed an EF of 55% with no wall motion abnormalities. Stand Alone Forms: Nursing Discharge Form Referrals: Linda Ceja [Other] Referral Note: Please call your PCP office to make a follow up appointment for within 1 to 2 weeks. No,Local [Primary Care Provider, Unknown] Referral Note: Follow-up with outpatient provider within 7 days of discharge Activity:: Activity as Tolerated Equipment/Supplies:: No Equipment Needed Diet:: heart healthy diabetic Discharge Orders Discharge Orders: Discharge Order (Routine); Ordered 07/10/25 Ordered By: Yadi Palomares Discharge Data Discharge Date/Time-TO BE ENTERED AT DEPARTURE: 07/10/25 14:06 DS: Summary Time Spent with Patient providing and/or coordinating discharge services: Greater than 30 minutes Status at Discharge Functional status at discharge: independent ambulation Overall status at discharge: patient is progressing back to baseline Mental Status: mental status grossly normal Speech and Movement: speech and movement normal Mood: congruent mood Affect: normal affect Exam Narrative Exam Narrative: Elderly female of stated age no acute distress head is atraumatic eyes nonicteric noninjected oral mucosa is slightly dry neck full range of motion no JVD cardiovascular regular rate and rhythm no murmurs appreciated respirations even and unlabored she has fine rales in her bases bilaterally there is no wheezing abdomen round nontender neurologic she is awake alert oriented no focal deficits psychiatric appropriate mood and affect Psych Mental Status: mental status grossly normal Speech and Movement: speech and movement normal Mood: congruent mood Affect: normal affect DS: Data Vitals/I&O Vitals and I&O: Vital Signs Temperature 36.6 C 07/10/25 08:12 Temperature Source Temporal Artery Scan 07/10/25 08:12 Pulse 89 07/10/25 08:12 Pulse Rhythm Regular 07/03/25 23:06 Pulse 109 H 07/03/25 22:09 Respiratory Rate 18 07/10/25 08:12 Respiratory Effort Short of Breath, Labored 07/03/25 23:06 Respiratory Depth Deep 07/03/25 23:06 Respiratory Pattern Tachypnea 07/03/25 23:06 Blood Pressure 110/88 07/10/25 08:12 Blood Pressure Mean 95 07/10/25 08:12 Pulse Oximetry 91 L 07/10/25 09:36 Oxygen Delivery Method Room Air 07/10/25 09:36 Oxygen Flow Rate 0 07/10/25 09:36 Pain Level 0 07/09/25 19:31 Comment Pt was a little diaphoretic. 07/08/25 01:44 Intake & Output 07/09/25 07/10/25 07/10/25 23:59 11:59 23:59 Intake Total 490 / 510 Balance 490 / -890 Intake: IV Oral 480 / 480 Other: Urine Color Yellow Urine Appearance Clear PFSH All Active Problems (Updated 07/06/25 @ 12:26 by Yadi Palomares NP) Restless leg syndrome (Acute) On deep vein thrombosis (DVT) prophylaxis (Acute) Hypomagnesemia (Acute) Pleural effusion associated with pulmonary infection (Acute) Elevated troponin level not due to acute coronary syndrome (Acute) Acute hyperglycemia (Acute) Migraine headache (Chronic) Hyperlipidemia (Chronic) HTN (hypertension) (Chronic) Hypothyroidism (acquired) (Chronic) COPD exacerbation (Acute) Multifocal pneumonia (Acute) Acute hypoxic respiratory failure (Acute) Social History Smoking/Tobacco Use Status: Former Tobacco Use Smoking risk assessment performed?: Yes Alcohol Intake: former Substance use type: does not use Housing: house Do you feel safe at home: Yes Do you feel safe in your relationship?: Yes Time Spent with Patient Time Spent with Patient: 45-69 minutes Time was spent: preparing to see the patient(eg.review tests), obtaining and/or reviewing separately otained hiistory, ordering medications,tests, procedures, indepentently interpreting results and counseling the patient
--- NOTE | 2025-07-10 16:40 | CMDISCH_ITS ---
Date of service: 07/10/25 Time of Service: 16:40 LACE Index Scoring Tool Questions: Length of Stay (in days): 7 - 13 Was the patient admitted via the E.D.?: Yes Comorbidities: Chronic Pulmonary Disease E.D. Visits: 1 Answers: Total Score: 11 Risk of Readmission: High Risk Care Management Discharge Plan Reason for Hospitalization: Pneumonia Discharge Plan: Jeannette will be discharged back to her cabin in [place] for a few days before returning to [place]. CM will fax her discharge summary to her PCP to facilitate continuity of care. Jeannette will follow up with her PCP and plan of care and transport via private vehicle with her . Patient/Family Education Needs: Review of discharge instructions, limitations, follow up plan and discuss Ask Me Three.
== END 2025-07-10 14:06 | disposition home or self-care (01) | DRG 871 ==
LOC: ER 22:26 → MS 22:35
PROVIDERS: Admitting Provider Family Medicine; Emergency Provider Emergency Medicine; Responsible Provider Nurse Practitioner Acute Care; Visit Provider Family Medicine
DX: J96.01 Acute respiratory failure with hypoxia (principal); J18.9 Pneumonia, unspecified organism; J91.8 Pleural effusion in other conditions classified elsewhere; J44.1 Chronic obstructive pulmonary disease with (acute) exacerbation; J44.0 Chronic obstructive pulmonary disease with (acute) lower respiratory infection; R73.9 Hyperglycemia, unspecified; E87.6 Hypokalemia; I10 Essential (primary) hypertension; E03.9 Hypothyroidism, unspecified; E78.2 Mixed hyperlipidemia; G43.809 Other migraine, not intractable, without status migrainosus; A41.9 Sepsis, unspecified organism; E83.42 Hypomagnesemia; G25.81 Restless legs syndrome; Z79.899 Other long term (current) drug therapy; F03.A0 Unspecified dementia, mild, without behavioral disturbance, psychotic disturbance, mood disturbance, and anxiety; T17.890A Other foreign object in other parts of respiratory tract causing asphyxiation, initial encounter; I08.1 Rheumatic disorders of both mitral and tricuspid valves; G25.0 Essential tremor; R74.8 Abnormal levels of other serum enzymes; E87.70 Fluid overload, unspecified; W44.F9XA Other object of natural or organic material, entering into or through a natural orifice, initial encounter; D72.829 Elevated white blood cell count, unspecified; T38.0X5A Adverse effect of glucocorticoids and synthetic analogues, initial encounter
CPT/HCPCS: 00123; 36415; 71275; 80048; 80053; 82805; 84145; 85027; 87040; 87637; 93005; 94640; 96365; 96367; 96375; 99285; J1650; 71045; 83036; 83735; 83880; 84132; 84443; 84484; 85025; 93010; 93306; 94664; 94667; 94668; 94760; 99223; 99231; 99232; 99233; 99239; J0456; J0696; J1815; J1938; J2919; J3475; J3480; J3490; J7512; J7613; J7620